=== PATIENT | male | born 1945 | race Caucasian/White ===

== ENCOUNTER 2016-11-24 20:56 | Emergency (ER) | payer OTHER ==
[~2016-11-24] VITALS: Ht 157.5 cm; Wt 63.0 kg
[~2016-11-24 20:56] MED LIST: ACET325T33 PO; CIPR500T4 PO; DOCU-144 PO; HYDR-3498 PO; WARF5TAB72 PO
[2016-11-24 21:00] VITALS: Ht 157.5 cm; Wt 63.0 kg
[2016-11-24 21:47] LABS: BASOPHILS % 0.5 % (0.0-2.0); EOSINOPHILS # 0.2 10^3/ul (0.0-0.5); EOSINOPHILS % 2.8 % (0.0-7.0); HEMATOCRIT 42.4 % (42.0-52.0); HEMOGLOBIN 13.7 g/dl (14.0-18.0); LYMPHOCYTES # 2.1 10^3/ul (0.8-2.9); LYMPHOCYTES % 28.2 % (15.0-51.0); MEAN CORPUSCULAR HEMOGLOBIN 26.3 pg (29.0-33.0); MEAN CORPUSCULAR HGB CONC 32.3 g/dl (32.0-37.0); MEAN CORPUSCULAR VOLUME 81.5 fl (82.0-101.0); MEAN PLATELET VOLUME 10.1 fl (7.4-10.4); MONOCYTE # 0.7 10^3/ul (0.3-0.9); MONOCYTES % 10.1 % (0.0-11.0); NEUTROPHIL # 4.3 10^3/ul (1.6-7.5); NEUTROPHILS % 58.4 % (39.0-77.0); PLATELET COUNT 208 10^3/UL (140-440); RED BLOOD COUNT 5.21 10^6/ul (4.70-6.10); RED CELL DISTRIBUTION WIDTH 16.6 % (11.5-14.5); UNCORRECTED WBC 7.3 10^3/ul (4.8-10.8); WHITE BLOOD COUNT 7.3 10^3/ul (4.8-10.8)
[2016-11-24 21:50] LABS: CONDITION 1; LH ANALYZER COMMENTS 1
[2016-11-24 21:56] LABS: ALBUMIN 3.8 g/dl (3.3-4.9); CHLORIDE 100 mmol/L (97-110); INR 1.8; PT RATIO 1.6; SODIUM 140 mmol/L (135-144)
[2016-11-24 21:57] LABS: PARTIAL THROMBOPLASTIN TIME 35.4 Sec (25.0-35.0); POTASSIUM 4.1 mmol/L (3.5-5.1)
[2016-11-24 21:59] LABS: ALANINE AMINOTRANSFERASE 16 IU/L (13-69); ALKALINE PHOSPHATASE 109 IU/L (42-121); ANION GAP 17 (8-16); ASPARTATE AMINO TRANSFERASE 18 IU/L (15-46); BILIRUBIN,INDIRECT 0.2 mg/dl (0-1.1); BILIRUBIN,TOTAL 0.2 mg/dl (0.2-1.3); BLOOD UREA NITROGEN 13 mg/dl (7-20); CALCIUM 8.6 mg/dl (8.4-10.2); CARBON DIOXIDE 27 mmol/L (21-31); CREATININE 0.53 mg/dl (0.61-1.24); GLUCOSE 78 mg/dl (70-220); TOTAL PROTEIN 7.6 g/dl (6.1-8.1)
[2016-11-24] MEDS ORDERED: WARF2.5T PO (22:06)
[2016-11-24 22:13] LABS: TROPONIN-I < 0.010 ng/ml (0.00-0.12)
--- NOTE | 2016-11-24 22:21 | RADRPT ---
PROCEDURE: XR Chest. CLINICAL INDICATION: SOB TECHNIQUE: Single frontal chest x-ray. COMPARISON: Chest x-ray of 07/04/[address] abdomen of 07/15/2015 FINDINGS: Colonic interposition and elevation of the right hemidiaphragm is again apparent. There is hypoinfla tion of the lungs. The patient is rotated to the right. Evaluation of the size of the cardiac silho uette is limited due to loss of visualization of the right heart border. ECG leads projected over t he chest. Linear atelectasis/fibrosis at left lung base laterally again seen. There is appearance of the additional minimal patchy density in the left costophrenic angle region which could be second vineet to atelectasis.There is minimal prominence of the lung interstitium likely minimal chronic maxwell es. IMPRESSION: Hypoinflation of the lungs. Patchy increased density left costophrenic angle region which could be secondary to atelectasis. PA and lateral chest x-ray is recommended when the patient can tolerate. RPTAT: HJES .Mika Schneider MD, Date Time Electronically viewed and signed by .Mika Schneider MD, on 11/24/2016 22:20 .S/
[2016-11-24] MEDS ORDERED: SOD CHLORIDE 0.9% 100 ML ONE (22:50)
[2016-11-24] MEDS ORDERED: IOHEXOL 100 ML ONE (22:50)
[2016-11-24] MEDS ORDERED: IOHEXOL 350MG/ML 50 ML BTL ONE (22:50)
--- NOTE | 2016-11-24 23:41 | RADRPT ---
PROCEDURE: CTA Chest and pulmonary angiogram. CLINICAL INDICATION: Chest pain and shortness of breath. TECHNIQUE: CT scan of the chest and CT pulmonary angiogram was performed on a multidetector high-r [employer]olution CT scanner. High-resolution thin slice coronal and sagittal imaging was obtained from the axial source images. 3-D volumetric rendered post processing was performed as well. The patient w as examined following the uncomplicated intravenous administration of 97 cc of Omnipaque 350. The im ages were reviewed on a PACS workstation. The total exam CTDI equals 31.35 mGy, and the total exam D LP equals 624.83 mGy-cm. One of the following 3 dose reduction techniques were used during this CT examination: automated exp osure control; adjustment of the mA and /or kV according to patient size; or use of iterative recons truciton technique COMPARISON: Chest x-ray dated 11/24/2016 FINDINGS: CT chest: The visualized base of the neck is normal. Low lung volumes are present. Bibasilar dependent atele ctasis is present. In the left lower lobe and peripheral lingula discoid atelectasis or early infil trate is present. Follow-up is recommended until resolution. No evidence for pleural effusions are present. Right hemidiaphragmatic elevation is again noted. The mediastinum is unremarkable without evidence for mass or lymphadenopathy. The vascular structur es of the mediastinum are normal in course and caliber. The heart size is normal without pericardia l thickening or effusion. The axillary, subpectoral, and supraclavicular regions are unremarkable. The surrounding chest wall is unremarkable. The visualized liver, spleen, pancreas, and bilateral adrenal glands are normal. The patient is sta tus post cholecystectomy changes. The imaged portions of the kidneys are normal. The imaged portio ns of the bowel are normal. The imaged osseous structures are remarkable for mild spondylosis of the spine. No CT pulmonary angiogram: No thrombus, clot, filling defect, or pulmonary web is identified. The pulmonary arteries are paula l in caliber and morphology. No filling defect is present to suggest pulmonary embolism. There is no evidence for pulmonary arterial hypertension. IMPRESSION: 1. No evidence for pulmonary embolism. 2. Hypoinflation with left greater than right basilar atelectasis. Recommend follow-up until resolu tion to exclude early infiltrate in the lingula and left lower lobe. 3. Status post cholecystectomy changes RPTAT: HDC .Nandini Sanchez MD, MD Date Time Electronically viewed and signed by .Nandini Sanchez MD, MD on 11/24/2016 23:40 .C/
[2016-11-25 01:42] VITALS: BP 132/76; PULSE 77; RESP 18
--- NOTE | 2016-11-25 03:58 | ERD ---
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 He states that shortness of breath is intermittent but getting worse. He has no associated chest pain, cough, fever, chills, new leg swelling. He states he has a history of DVT because he is bedbound due to his paraplegia, for which he is on Coumadin. He does not have any other medical problems. Nothing seems to make the shortness of breath better or worse. ROS All systems reviewed and are negative except as per history of present illness. Medications Home Meds Reported Medications Warfarin Sodium* (Coumadin*) 2.5 Mg Tablet, 2.5 MG PO DAILY, TAB TAKE 2TAB ON TUESDAY AND TUESDAY,AND 1.5TAB ALL OTHER QHS 11/24/16 Discontinued Reported Medications Warfarin Sodium* (Coumadin*) 5 Mg Tablet, 5 MG PO DAILY, TAB 07/05/15 Discontinued Scripts Acetaminophen* (Tylenol*) 325 Mg Tablet, 1 TAB PO Q6 Y for PAIN AND OR ELEVATED TEMP, #20 TAB Prov:ANGELA VALENTINO. [employer] 07/15/16 Ciprofloxacin Hcl* (Ciprofloxacin Hcl*) 500 Mg Tablet, 500 MG PO BID for 10 Days , TAB Prov:ANGELA VALENTINO. [employer] 07/15/16 Hydrocodone Bit/Acetaminophen (Anexsia 5-325 Mg Tablet) 1 Tab Tab, 2 TAB PO Q6H Y for MODERATE, #30 Prov:LIZETH LOCKHART 07/18/15 Docusate Sodium* (Colace*) 100 Mg Cap, 200 MG PO DAILY, #30 Prov:LIZETH LOCKHART 07/18/15 Allergies Allergies: Coded Allergies: No Known Allergy (Verified , 11/24/16) PMhx/Soc History of Surgery: Yes (removal of spinal tumor 2005) Anesthesia Reaction: No Hx Neurological Disorder: Yes (paraplegia bilat legs) Hx Respiratory Disorders: No Hx Cardiac Disorders: No Hx Psychiatric Problems: No Hx Miscellaneous Medical Probl: Yes (urine retention, dvt legs) Hx Alcohol Use: No Hx Substance Use: No Hx Tobacco Use: No Smoking Status: Never smoker FmHx Family History: No diabetes Physical Exam Vitals Vital Signs Date Time Temp Pulse Resp B/P Pulse Ox O2 Delivery O2 Flow Rate FiO2 11/25/16 01:42 77 18 132/76 96 Nasal Cannula 2.0 11/24/16 21:51 Nasal Cannula 2 11/24/16 21:00 98.3 72 22 133/117 95 Physical Exam Const: No apparent distress, nontoxic, laying comfortably in bed Head: Atraumatic Eyes: Normal Conjunctiva ENT: Normal External Ears, Nose and Mouth. Neck: Full range of motion.No meningismus. Resp: No tachypnea, no respiratory distress, no retractions, equal breath sounds bilaterally, bibasilar crackles present Cardio: Regular rate and rhythm, no murmurs Abd: Soft, non tender, non distended. Normal bowel sounds Skin: No petechiae or rashes Back: No midline or flank tenderness Ext: No cyanosis, 4 out of 5 strength in right upper extremity. 5 out of 5 strength in left upper extremity. No strength in bilateral lower extremities. Muscle atrophy in all 4 extremities. Bilateral lower extremities with trace edema, symmetric, nontender to palpation. Neur: Awake and alert and oriented 3 Psych: Normal Mood and Affect Result Diagram: 11/24/16212411/24/162124 Results 24 hrs Laboratory Tests Test 11/24/16 21:25 Activated Partial Thromboplast Time 35.4Sec Alanine Aminotransferase (ALT/SGPT) 16IU/L Albumin 3.8g/dl Albumin/Globulin Ratio 1.00 Alkaline Phosphatase 109IU/L Anion Gap 17 Aspartate Amino Transf (AST/SGOT) 18IU/L Basophils # 0.010^3/ul Basophils % 0.5% Blood Morphology Comment Blood Urea Nitrogen 13mg/dl Calcium Level 8.6mg/dl Carbon Dioxide Level 27mmol/L Chloride Level 100mmol/L Creatinine 0.53mg/dl Direct Bilirubin 0.00mg/dl Eosinophils # 0.210^3/ul Eosinophils % 2.8% Globulin 3.80g/dl Glucose Level 78mg/dl Hematocrit 42.4% Hemoglobin 13.7g/dl INR International Normalized Ratio 1.80 Indirect Bilirubin 0.2mg/dl Lymphocytes # 2.110^3/ul Lymphocytes % 28.2% Mean Corpuscular Hemoglobin 26.3pg Mean Corpuscular Hemoglobin Concent 32.3g/dl Mean Corpuscular Volume 81.5fl Mean Platelet Volume 10.1fl Monocytes # 0.710^3/ul Monocytes % 10.1% Neutrophils # 4.310^3/ul Neutrophils % 58.4% Nucleated Red Blood Cells # 0.010^3/ul Nucleated Red Blood Cells % 0.0/100WBC Platelet Count 76541^3/UL Potassium Level 4.1mmol/L Prothrombin Time 21.0Sec Prothrombin Time Ratio 1.6 Red Blood Count 5.2110^6/ul Red Cell Distribution Width 16.6% Sodium Level 140mmol/L Total Bilirubin 0.2mg/dl Total Protein 7.6g/dl Troponin I < 0.010ng/ml White Blood Count 7.310^3/ul Current Medications Medications (Trade) Dose Ordered Sig/Anita Route PRN Reason Start Time Stop Time Status Last Admin Dose Admin IV Flush 10 ml 10 ml STK-MED ONCE .ROUTE 11/24/16 22:50 11/24/16 22:51 DC 11/24/16 23:21 Sodium Chloride 100 ml @ ud STK-MED ONCE .ROUTE 11/24/16 22:50 11/24/16 22:51 DC 11/24/16 23:21 Iohexol (Omnipaque) 100 ml @ ud STK-MED ONCE .ROUTE 11/24/16 22:50 11/24/16 22:51 DC 11/24/16 23:21 Iohexol (Omnipaque 350mg/ ml) 50 ml STK-MED ONCE .ROUTE 11/24/16 22:50 11/24/16 22:51 DC Procedures/MDM EKG: Rate/Rhythm: Normal Sinus Rhythm QRS, ST, T-waves: No changes consistent w/ acute ischemia Impression: No evidence of ischemia or arrhythmia Chest x-ray shows right hemidiaphragm elevation which is chronic for the patient. Possible left lower lobe infiltrates. CTA chest done to evaluate for pulmonary embolism. There is no evidence of dissection or pulmonary embolism. There is bilateral atelectasis, left greater than right. Patient is presenting with shortness of breath at rest. Vitals are stable and he is afebrile. I have a low suspicion for acute coronary syndrome. Given his history of DVT, CTA of the chest was done to evaluate for pulmonary embolism and was negative for pulmonary embolism. There is no evidence of obvious pneumonia. His labs are all within normal limits. His EKG does not show ischemia or other concerning abnormalities. I suspect the patient's dyspnea secondary to atelectasis. Incentive spirometer was provided and the patient was counseled on how to use it. I advised to follow-up with his primary care doctor in the next 2 days. Return precautions were given. Patient was stable upon discharge. Departure Diagnosis: Primary Impression: Dyspnea, unspecified Additional Impression: Atelectasis of both lungs Condition: Stable Patient Instructions: Atelectasis, Using an Incentive Spirometer, Dyspnea Additional Instructions: Regresa a la emergencia si no estas meojorando o estas empejorando. Mario josse jesse para ortega medico primario en 1-2 erickson. JOSÉ LUIS CHONG MD Nov 25, 2016 03:58
== END 2016-11-25 01:42 | disposition home or self-care (01) ==
LOC: E/R 20:56
DX: R06.00 Dyspnea, unspecified (principal); J98.11 Atelectasis; R40.2142 Coma scale, eyes open, spontaneous, at arrival to emergency department; R40.2252 Coma scale, best verbal response, oriented, at arrival to emergency department; R40.2362 Coma scale, best motor response, obeys commands, at arrival to emergency department; Z79.01 Long term (current) use of anticoagulants
CPT/HCPCS: 36415; 71010; 71275; 80053; 84484; 85025; 85610; 85730; 93005; Q9967; Z7502; Z7610

== ENCOUNTER 2017-03-28 10:42 | Emergency (ER) | payer OTHER ==
[~2017-03-28] VITALS: Wt 85.0 kg
[~2017-03-28 10:42] MED LIST changes: -ACET325T33 PO; -CIPR500T4 PO; -DOCU-144 PO; -HYDR-3498 PO; +WARF2.5T PO; -WARF5TAB72 PO
[2017-03-28 12:38] LABS: ADD SCAN DIFF NO
[2017-03-28 12:44] LABS: BASOPHILS % 0.4 % (0.0-2.0); EOSINOPHILS # 0.1 10^3/ul (0.0-0.5); EOSINOPHILS % 1.2 % (0.0-7.0); HEMATOCRIT 43.5 % (42.0-52.0); HEMOGLOBIN 13.8 g/dl (14.0-18.0); LYMPHOCYTES # 1.9 10^3/ul (0.8-2.9); LYMPHOCYTES % 23.3 % (15.0-51.0); MEAN CORPUSCULAR HEMOGLOBIN 26.3 pg (29.0-33.0); MEAN CORPUSCULAR HGB CONC 31.7 g/dl (32.0-37.0); MEAN CORPUSCULAR VOLUME 82.9 fl (82.0-101.0); MEAN PLATELET VOLUME 10.9 fl (7.4-10.4); MONOCYTE # 0.7 10^3/ul (0.3-0.9); MONOCYTES % 8.3 % (0.0-11.0); NEUTROPHIL # 5.5 10^3/ul (1.6-7.5); NEUTROPHILS % 66.3 % (39.0-77.0); PLATELET COUNT 291 10^3/UL (140-415); RED BLOOD COUNT 5.25 10^6/ul (4.70-6.10); RED CELL DISTRIBUTION WIDTH 15.2 % (11.5-14.5); WHITE BLOOD COUNT 8.3 10^3/ul (4.8-10.8)
[2017-03-28 13:02] LABS: INR 2.36; PROTIME 26.1 Sec (12.2-14.2)
[2017-03-28 13:03] LABS: PARTIAL THROMBOPLASTIN TIME 42.8 Sec (25.0-35.0)
[2017-03-28 13:06] LABS: ALBUMIN 3.7 g/dl (3.3-4.9); ALBUMIN/GLOBULIN RATIO 0.9; BILIRUBIN,INDIRECT 0.4 mg/dl (0-1.1); BILIRUBIN,TOTAL 0.4 mg/dl (0.2-1.3); CALCIUM 8.8 mg/dl (8.4-10.2); CREATININE 0.54 mg/dl (0.61-1.24); POTASSIUM 4.4 mmol/L (3.5-5.1); TOTAL PROTEIN 7.8 g/dl (6.1-8.1)
[2017-03-28 13:09] LABS: ADD UMIC YES; URINE BILIRUBIN (Dip) NEGATIVE (NEGATIVE); URINE BLOOD (Dip) 3+ (NEGATIVE); URINE COLOR YELLOW (YELLOW); URINE GLUCOSE (Dip) NEGATIVE (NEGATIVE); URINE KETONES (Dip) NEGATIVE (NEGATIVE); URINE LEUKOCYTE ESTERASE (Dip) 1+ (NEGATIVE); URINE NITRITE (Dip) NEGATIVE (NEGATIVE); URINE TOTAL PROTEIN (Dip) NEGATIVE (NEGATIVE); URINE UROBILINOGEN (Dip) 1.0 E.U./dL (0.1-1.0)
[2017-03-28 13:23] LABS: BACTERIA,URINE MANY; SQUAMOUS EPITHELIAL CELL,UR FEW
--- NOTE | 2017-03-28 13:33 | RADRPT ---
PROCEDURE: CT Abdomen and Pelvis without contrast. CLINICAL INDICATION: Right flank pain TECHNIQUE: CT scan of the abdomen and pelvis without contrast was performed on a multidetector hig h-resolution CT scanner. The patient was scanned without intravenous contrast. Coronal and sagittal reformatted images were obtained from the axial source images. Images were reviewed on a high-resol [employer] PACS workstation. The total exam CTDI equals 10.92 mGy and the total exam DLP equals 724.27 mG y-cm. One or more of the following dose reduction techniques were used: Automated exposure control. Adjustment of the mA and/or kV according to patient size. Use of iterative reconstruction technique. COMPARISON: CT abdomen and pelvis 07/15/2015. FINDINGS: CT abdomen: The lung bases are remarkable for mild bibasilar atelectasis. The heart size is normal, without per icardial thickening or effusion. The liver is normal in size and density without focal mass or intr ahepatic biliary dilatation. The spleen is normal in size and homogeneous in density. The stomach is partially collapsed, but is grossly unremarkable. The pancreas as visualized is normal. The gal lbladder is surgically absent. There is mild prominence of the common bile duct, not significantly The adrenal glands are symmetric and normal. The kidneys are symmetrically unremarkable as well. No renal calculus or obstructive uropathy or mass lesion is seen. The aorta is of normal caliber. Aortic vascular calcifications are present. There is no retroperit mckeon lymphadenopathy. The ryan hepatis region is clear. There is moderate stool throughout the co carmelita. CT pelvis: The small bowel loops situated within the pelvis are unremarkable. There are bilateral fat containi ng inguinal hernias left being more prominent. The pelvic organs are normal. The pelvic sidewalls and inguinal regions are clear. The sigmoid colon and rectum are remarkable for mild stool retentio n in the rectum.. No mass, lymphadenopathy, or free fluid is seen. No acute inflammation is seen. The surrounding osseous structures are remarkable for degenerative spondylosis of the spine. No os teolytic or osteoblastic lesion is detected. There is stable mild compression fracture of L4. There has been interval worsening of chronic compression fracture of L1 with approximately 80% height los s centrally with no significant retropulsion. There is age indeterminate mild to moderate compressi on fracture of L3 with approximately 30% height loss centrally. There is mild paraspinal soft tissu e thickening suggesting acute/subacute nature of this compression fracture. IMPRESSION: 1. No urolithiasis. No hydronephrosis. 2. Mild compression fracture of L3 with paraspinal soft tissue thickening suggesting acute/subacute nature of the fracture. Minimal retropulsion with no significant central canal compromise. 3. Progressive height loss of chronic L1 compression fracture approximately 80% height loss with no significant retropulsion. 4. Unchanged chronic mild compression fracture of L4. 5. Status post cholecystectomy. Stable mild prominence of the CBD. 6. Moderate stool throughout the colon with stool retention in the rectum. No colonic obstruction. 7. Fat containing bilateral inguinal hernias left being more prominent. 8. Mild diffuse atherosclerosis. RPTAT: BB .Smita Gurrola MD, Date Time Electronically viewed and signed by .Smita Gurrola MD, on 03/28/2017 13:32 .O/
--- NOTE | 2017-03-28 13:42 | ERD ---
ER Documentation Chief Complaint Date/Time DATE: 03/28/17 TIME: 13:37 Chief Complaint ABD PAIN X 3 DAY W/ FEVER HPI This is a 71-year-old paraplegic male who presents to the emergency room for evaluation of abdominal pain for the past 2 days. The patient states that he has an achy and sharp pain on the right flank which radiates to the abdomen. The patient denies any fevers associated with this but did state he had chills previously. This patient denies any recent trauma, and denies any nausea, vomiting or diarrhea associated with this. He came to the emergency room for evaluation and is denying any aggravating or relieving factors for his complaints at this time ROS All systems reviewed and are negative except as per history of present illness. Medications Home Meds Reported Medications Warfarin Sodium* (Coumadin*) 2.5 Mg Tablet, 2.5 MG PO DAILY, TAB 11/24/16 Allergies Allergies: Coded Allergies: No Known Allergy (Verified , 11/24/16) PMhx/Soc History of Surgery: Yes (removal of spinal tumor 2005) Anesthesia Reaction: No Hx Neurological Disorder: Yes (paraplegia bilat legs) Hx Respiratory Disorders: No Hx Cardiac Disorders: No Hx Psychiatric Problems: No Hx Miscellaneous Medical Probl: Yes (urine retention, dvt legs) Hx Alcohol Use: No Hx Substance Use: No Hx Tobacco Use: No Smoking Status: Never smoker Physical Exam Vitals Vital Signs Date Time Temp Pulse Resp B/P Pulse Ox O2 Delivery O2 Flow Rate FiO2 03/28/17 10:44 98.2 78 18 114/61 99 Physical Exam INITIAL VITAL SIGNS: Reviewed by me GENERAL: The patient is well developed, paraplegic male HEENT: Pupils equal, round, and reactive to light. EOMI. There is no scleral icterus. NECK: C-spine is soft and supple, there is no meningismus. There is no cervical lymphadenopathy. LUNGS: Clear to auscultation bilaterally. There are no rales, wheezes or rhonchi. HEART: Regular rate and rhythm, no murmurs, clicks, rubs or gallops. ABDOMEN: Right-sided CVAT, otherwise soft, non-tender, non-distended. There are bowel sounds in all four quadrants. No rebound or guarding. EXTREMITIES: There is no peripheral cyanosis or edema. No focal swelling or erythema. NEUROLOGICAL: The patient moves upper extremities with 5/5 strength. Cranial nerves II - XII are intact. SKIN: There is no apparent rash or petechiae. HEME/LYMPHATIC: There is no evidence of excessive bruising or lymphedema. PSYCHIATRIC: The patient does not appear anxious or depressed. Result Diagram: 03/28/17 1218 03/28/17 1218 Results 24 hrs Laboratory Tests Test 03/28/17 12:11 03/28/17 12:18 Urine Color YELLOW Urine Clarity SLIGHTLY CLOUDY Urine pH 6.0 Urine Specific [place] 1.020 Urine Ketones NEGATIVE Urine Nitrite NEGATIVE Urine Bilirubin NEGATIVE Urine Urobilinogen 1.0 E.U./dL Urine Leukocyte Esterase 1+ Urine Microscopic RBC 10-25/HPF Urine Microscopic WBC 10-25/HPF Urine Squamous Epithelial Cells FEW Urine Bacteria MANY Urine Hemoglobin 3+ Urine Glucose NEGATIVE% Urine Total Protein NEGATIVE White Blood Count 8.310^3/ul Red Blood Count 5.2510^6/ul Hemoglobin 13.8g/dl Hematocrit 43.5% Mean Corpuscular Volume 82.9fl Mean Corpuscular Hemoglobin 26.3pg Mean Corpuscular Hemoglobin Concent 31.7g/dl Red Cell Distribution Width 15.2% Platelet Count 36497^3/UL Mean Platelet Volume 10.9fl Neutrophils % 66.3% Lymphocytes % 23.3% Monocytes % 8.3% Eosinophils % 1.2% Basophils % 0.4% Nucleated Red Blood Cells % 0.0/100WBC Neutrophils # 5.510^3/ul Lymphocytes # 1.910^3/ul Monocytes # 0.710^3/ul Eosinophils # 0.110^3/ul Basophils # 0.010^3/ul Nucleated Red Blood Cells # 0.010^3/ul Prothrombin Time 26.1Sec Prothrombin Time Ratio 2.0 INR International Normalized Ratio 2.36 Activated Partial Thromboplast Time 42.8Sec Sodium Level 139mmol/L Potassium Level 4.4mmol/L Chloride Level 103mmol/L Carbon Dioxide Level 30mmol/L Anion Gap 10 Blood Urea Nitrogen 8mg/dl Creatinine 0.54mg/dl Glucose Level 95mg/dl Calcium Level 8.8mg/dl Total Bilirubin 0.4mg/dl Direct Bilirubin 0.00mg/dl Indirect Bilirubin 0.4mg/dl Aspartate Amino Transf (AST/SGOT) 19IU/L Alanine Aminotransferase (ALT/SGPT) 26IU/L Alkaline Phosphatase 111IU/L Total Protein 7.8g/dl Albumin 3.7g/dl Globulin 4.10g/dl Albumin/Globulin Ratio 0.90 Lipase 29U/L Procedures/MDM CT abdomen pelvis without: 1. No urolithiasis. No hydronephrosis. 2. Mild compression fracture of L3 with paraspinal soft tissue thickening suggesting acute/subacute nature of the fracture. Minimal retropulsion with no significant central canal compromise. 3. Progressive height loss of chronic L1 compression fracture approximately 80 % height loss with no significant retropulsion. 4. Unchanged chronic mild compression fracture of L4. 5. Status post cholecystectomy. Stable mild prominence of the CBD. 6. Moderate stool throughout the colon with stool retention in the rectum. No colonic obstruction. 7. Fat containing bilateral inguinal hernias left being more prominent. 8. Mild diffuse atherosclerosis. This 71-year-old male presents to the ER for evaluation of abdominal pain. When I evaluated this patient did have mild flank pain on the right. Lab work was obtained including a urinalysis. Urinalysis shows some white blood cells in the urine and lab work does not demonstrate any leukocytosis. This patient was afebrile in the emergency room. No nausea or vomiting. CT of the abdomen pelvis shows mild compression fracture of L3 with paraspinal soft tissue thickening with minimal retropulsion. I asked this patient about any recent trauma and he states that 4 months ago he had a fall at home. I think that this fall 4 months ago would be the cause of his L1 compression fracture and possibly L3 as the patient has had no recent trauma. This patient will be treated for urinary tract infection. He will be given medicine for pain and will be discharged home with referral to [facility] orthopedic [place] for evaluation of possible kyphoplasty. The patient is okay to plan of care and advised him to return to the ER if he were to develop any worsening pain, fever, chills or vomiting and he verbalized understanding. Departure Diagnosis: Primary Impression: Acute cystitis Additional Impression: Vertebral compression fracture Condition: Stable RONNIECAMMY MCDERMOTT March 28, 2017 13:42
[2017-03-28] MEDS ORDERED: CIPR500T4 PO (13:43)
[2017-03-28] MEDS ORDERED: HYDR-906 PO (13:43)
[2017-03-28] MEDS ORDERED: CIPROFLOXACIN 500 MG TAB ONE (13:43)
[2017-03-28] MEDS ORDERED: HYDROCODONE/APAP (5/325) TAB PO ONE (14:00)
[2017-03-28] MEDS ORDERED: CIPROFLOXACIN 500 MG TAB PO ONE (14:00)
[2017-03-28 14:06] VITALS: PULSE 62; RESP 18
== END 2017-03-28 14:07 | disposition home or self-care (01) ==
LOC: E/R 10:42
DX: N30.00 Acute cystitis without hematuria (principal); S32.019A Unspecified fracture of first lumbar vertebra, initial encounter for closed fracture; S32.039A Unspecified fracture of third lumbar vertebra, initial encounter for closed fracture; S32.049A Unspecified fracture of fourth lumbar vertebra, initial encounter for closed fracture; X58.XXXA Exposure to other specified factors, initial encounter; Y92.9 Unspecified place or not applicable; Z79.01 Long term (current) use of anticoagulants
CPT/HCPCS: 36415; 74176; 80053; 81001; 83690; 85025; 85610; 85730; Z7502; Z7610; 81003

== ENCOUNTER 2017-04-05 09:01 | Inpatient (IN) | payer OTHER ==
[~2017-04-05] VITALS: Ht 165.1 cm; Wt 72.0 kg
[~2017-04-05 09:01] MED LIST changes: +CIPR500T4 PO; +HYDR-906 PO
[2017-04-05] MEDS ORDERED: morphine 4 MG/ML VIAL IV STA (09:03)
[2017-04-05] MEDS ORDERED: SOD CHLORIDE 0.9% 500 ML IV STA (09:03)
[2017-04-05] MEDS ORDERED: ONDANSETRON 4 MG INJ IV STA (09:03)
--- NOTE | 2017-04-05 09:36 | RADRPT ---
PROCEDURE: CT abdomen and pelvis without contrast. CLINICAL INDICATION: Abdominal Pain TECHNIQUE: CT scan of the abdomen and pelvis without contrast was performed and is reconstructed a t 2.5 mm contiguous axial intervals from the dome of the diaphragm to the inferior pubic rami.. The patient was scanned without intravenous contrast. Sagittal and coronal reformatted images were obt ained from the axial source images. The calculated radiation dose measures 684 mGy centimeters. The CTDI measures 10 mGy. COMPARISON: CT abdomen pelvis March 28, 2017. FINDINGS: The lung bases are clear of any infiltrate or nodule. No effusion is seen. There is elevation of th e right hemidiaphragm. The liver is of normal size, contour and attenuation with no mass or ductal dilatation. Gallbladder has been removed. No splenic, adrenal or pancreatic abnormalities present. Kidneys are of normal size and contour. No hydronephrosis, calculus or masses seen. Ureters are o f normal course and caliber with no stone. No bladder mass or stone is present. There is no aneurysm. No adenopathy is present. No bowel mass or obstruction is present. There is a large volume of retained fecal material throug hout the colon and rectum. The colon is interposed under the right hemidiaphragm. The appendix is n ormal. No phlegmon, ascites or pneumoperitoneum is visualized. There is mild concentric thickening of the rectum with stranding of the pre coccygeal fat. No discrete collection or extraluminal gas is present. There are bilateral inguinal hernias containing fat. Noted is a moderate to severe chronic compression fracture of the L1. There is a moderate acute to subacute inferior endplate compression fracture of the L3 which does not extend into the pedicles or posterior elements and does not demonstrate significant retropulsion. Chronic moderate endplate co mpression fractures seen and L4. IMPRESSION: No evidence of urolithiasis, obstructive uropathy, diverticulitis or appendicitis. Constipation. Concentric thickening rectum with stranding of surrounding fat. Rule out proctitis. Chronic compression fractures L1 and L4. Acute to subacute compression fracture L3 without retropul toby. Post cholecystectomy. Inguinal hernias containing fat. .Geovanny Carvajal MD, MD Date Time Electronically viewed and signed by .Geovanny Carvajal MD, on 04/05/2017 09:36 .A/
[2017-04-05 09:48] LABS: ADD SCAN DIFF NO
[2017-04-05 09:50] LABS: BASOPHILS % 0.4 % (0.0-2.0); EOSINOPHILS # 0.1 10^3/ul (0.0-0.5); EOSINOPHILS % 0.6 % (0.0-7.0); HEMATOCRIT 39.8 % (42.0-52.0); HEMOGLOBIN 12.5 g/dl (14.0-18.0); LYMPHOCYTES # 1.2 10^3/ul (0.8-2.9); MEAN CORPUSCULAR HEMOGLOBIN 25.6 pg (29.0-33.0); MEAN CORPUSCULAR HGB CONC 31.4 g/dl (32.0-37.0); MEAN CORPUSCULAR VOLUME 81.6 fl (82.0-101.0); MEAN PLATELET VOLUME 10.2 fl (7.4-10.4); MONOCYTE # 0.8 10^3/ul (0.3-0.9); NEUTROPHIL # 8.7 10^3/ul (1.6-7.5); NEUTROPHILS % 80.5 % (39.0-77.0); PLATELET COUNT 343 10^3/UL (140-415); RED BLOOD COUNT 4.88 10^6/ul (4.70-6.10); RED CELL DISTRIBUTION WIDTH 15.2 % (11.5-14.5); WHITE BLOOD COUNT 10.8 10^3/ul (4.8-10.8)
[2017-04-05] MEDS ORDERED: WARF5TAB72 PO (10:06)
[2017-04-05] MEDS ORDERED: WARF1TAB47 PO (10:07)
[2017-04-05 10:13] LABS: ALBUMIN 3.4 g/dl (3.3-4.9); ALBUMIN/GLOBULIN RATIO 0.87; BILIRUBIN,INDIRECT 0.5 mg/dl (0-1.1); BILIRUBIN,TOTAL 0.5 mg/dl (0.2-1.3); CALCIUM 8.5 mg/dl (8.4-10.2); CREATININE 0.55 mg/dl (0.61-1.24); POTASSIUM 4.2 mmol/L (3.5-5.1); TOTAL PROTEIN 7.3 g/dl (6.1-8.1)
[2017-04-05 11:08] LABS: ADD UMIC YES; UR BILIRUBIN (Dip) 1+ (NEGATIVE); UR BLOOD (Dip) 1+ (NEGATIVE); UR CLARITY TURBID (CLEAR); UR COLOR YELLOW (YELLOW); UR GLUCOSE (Dip) NEGATIVE (NEGATIVE); UR KETONES (Dip) TRACE (NEGATIVE); UR LEUKOCYTE ESTERASE (Dip) 1+ (NEGATIVE); UR NITRITE (Dip) NEGATIVE (NEGATIVE); UR TOTAL PROTEIN (Dip) NEGATIVE (NEGATIVE); UR UROBILINOGEN (Dip) 1.0 E.U./dL (0.1-1.0)
[2017-04-05 11:38] LABS: ICTOTEST NEGATIVE (NEGATIVE); URINE RBCS 0-2 /HPF (0)
[2017-04-05 11:39] LABS: UR BACTERIA MANY
[2017-04-05] MEDS ORDERED: morphine 10 MG INJ IM PRN (15:30)
[2017-04-05] MEDS ORDERED: CEFTRIAXONE 1 GM INJ IM ONE (15:30)
[2017-04-05] MEDS ORDERED: ACETAMINOPHEN 500 MG TAB PO PRN (15:30)
[2017-04-05 15:47] LABS: INR 3.93; PROTIME 39.1 Sec (12.2-14.2); PT RATIO 3.1
[2017-04-05] MEDS ORDERED: CEFTRIAXONE 1 GM/50 ML (PMX) 50 ML IVPB SCH ×2 (16:00→18:00)
--- NOTE | 2017-04-05 16:18 | HP ---
DATE OF ADMISSION: 04/05/2017 CHIEF COMPLAINT: Right-sided abdominal pain, back pain and diarrhea. HISTORY OF PRESENT ILLNESS: The patient is a 71-year-old gentleman well known to me from previous a dmissions. 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 The patient since then has been wheelchair bound and also is incontinent of bowel and urine. Th e patient has previously been admitted because of UTI and ureteral stone. Patient came to ER with r ight-sided abdominal pain, lower back pain and also reported diarrhea. Patient did not have any hem aturia, no reported fever or chills. No reported chest pain, shortness of breath. The patient has history of deep vein thrombosis of left lower extremity several years ago and has been on Coumadin s guerrero then. The patient did not have any abdominal distention, no reported vomiting, no reported cou gh, headache, sore throat. No reported leg edema. Patient is not orthopneic. The patient was seen in the ER and was noted to have normal white count, however, did have a left shift with neutrophils of 80.5%. Chemistry was unremarkable with normal liver enzymes. Patient also underwent CT of the abdomen and pelvis which revealed no evidence of ureterolithiasis or obstructive uropathy, diverticu litis or appendicitis, concentric thickening rectum with stranding of surrounding fat rule out proct itis. Patient also had constipation. The patient also has chronic compression fracture L1 to L4 an d acute to subacute compression fracture in L3 with retropulsion. Patient recently was in the ER on 03/26/[address] scan and at that time was also noted to have L3 fracture. The patient denied any recent fall. The rest of the history is unremarkable. PAST MEDICAL HISTORY: As stated above. PAST SURGICAL HISTORY: Cervical tumor resection, details not available. ALLERGIES: NONE. SOCIAL HISTORY: No smoking, no alcohol. Patient lives with the family. MEDICATIONS: The patient was on Coumadin prior to admission. The patient states that he was on 2.5 mg. FAMILY HISTORY: Noncontributory. PHYSICAL EXAMINATION: GENERAL: The patient is conscious, awake, alert. VITAL SIGNS: Temperature 98.4, pulse 102, respirations 18, blood pressure 114/____, O2 saturation 9 9% on room air. HEENT: Atraumatic, normocephalic. Conjunctivae and lids normal. Oropharynx clear. NECK: Supple. No mass, no thyromegaly. CHEST: Fairly clear. CARDIOVASCULAR: Nose and ears normal. No murmur, gallop, or rub. ABDOMEN: Soft, nondistended. Mild right-sided tenderness present. No guarding or rigidity. Bowel sounds present. EXTREMITIES: No leg edema. Pedal pulses palpable. SKIN: Without acute rash. NEUROLOGIC: The patient is awake, alert, fairly oriented with dense paraplegia. LABORATORY DATA: As above. Urine antigen positive for UTI. IMPRESSION: 1. Acute proctitis. 2. Constipation. 3. Rule out possible urinary tract infection. 4. Paraplegia. 5. Cervical tumor resection. 6. History of deep venous thrombosis several years ago. PLAN: Patient admitted on medical floor. Patient will be started on IV Rocephin, IV fluids. Will obtain PT/INR. We will also add IV Flagyl empirically. Will order stool C. diff and routine cultu re and urine culture. Further recommendation will depend on patient's hospital course. If the byron ent does not improve in the next 24 to 48 hours, then we will obtain a GI consultation. Patient's l ipase in the ER came back as normal. Dictated By: CHARISMA RENTERIA/JASMIN Conf#: [id number] DID#: [id number]
[2017-04-05 16:21] VITALS: Ht 165.1 cm; Wt 72.0 kg
[2017-04-05 16:30] VITALS: BP 112/63; PULSE 65
[2017-04-05] MEDS: SOD CHLORIDE 0.9% 1,000 ML IV SCH (17:31)
[2017-04-05] MEDS: HYDROCODONE/APAP (5/325) TAB PO PRN ×2 (18:20→22:34)
[2017-04-05] MEDS: morphine 4 MG/ML VIAL IV PRN (18:42)
[2017-04-06] MEDS: morphine 4 MG/ML VIAL IV PRN ×3 (00:20→22:27)
[2017-04-06] MEDS: HYDROCODONE/APAP (5/325) TAB PO PRN (02:32)
[2017-04-06] MEDS: SOD CHLORIDE 0.9% 1,000 ML IV SCH ×3 (04:50→22:27)
[2017-04-06 06:50] LABS: ADD SCAN DIFF NO
[2017-04-06 06:55] LABS: BASOPHILS % 0.4 % (0.0-2.0); EOSINOPHILS # 0.3 10^3/ul (0.0-0.5); EOSINOPHILS % 3.7 % (0.0-7.0); HEMATOCRIT 34.3 % (42.0-52.0); HEMOGLOBIN 10.7 g/dl (14.0-18.0); LYMPHOCYTES # 1.2 10^3/ul (0.8-2.9); LYMPHOCYTES % 17.1 % (15.0-51.0); MEAN CORPUSCULAR HGB CONC 31.2 g/dl (32.0-37.0); MEAN CORPUSCULAR VOLUME 83.5 fl (82.0-101.0); MONOCYTE # 0.6 10^3/ul (0.3-0.9); MONOCYTES % 8.8 % (0.0-11.0); NEUTROPHIL # 4.7 10^3/ul (1.6-7.5); NEUTROPHILS % 69.9 % (39.0-77.0); PLATELET COUNT 289 10^3/UL (140-415); RED BLOOD COUNT 4.11 10^6/ul (4.70-6.10); RED CELL DISTRIBUTION WIDTH 15.5 % (11.5-14.5); WHITE BLOOD COUNT 6.7 10^3/ul (4.8-10.8)
[2017-04-06 07:12] LABS: POTASSIUM 4.7 mmol/L (3.5-5.1)
[2017-04-06 07:14] LABS: CREATININE 0.54 mg/dl (0.61-1.24)
[2017-04-06 07:15] LABS: CALCIUM 8.2 mg/dl (8.4-10.2)
[2017-04-06 07:20] VITALS: BP 124/64; RESP 20
[2017-04-06 07:38] LABS: INR 4.18; PROTIME 41.1 Sec (12.2-14.2); PT RATIO 3.2
--- NOTE | 2017-04-06 14:36 | PN ---
Date/Time of Note Date/Time of Note DATE: 04/06/17 TIME: 14:32 Assessment/Plan VTE Prophylaxis VTE Prophylaxis Intervention: SCD's Lines/Catheters [facility] Peripheral IV Urinary Cath still in place: No Assessment/Plan Chief Complaint/Hosp Course Patient is sitting in bed eating lunch, denies nausea vomiting, complaints of the left lower quadrant tenderness. Problems: Assessment/Plan - Acute proctitis. Continue broad-spectrum antibiotics. - Possible UTI per UA follow-up on culture. - Constipation. Continue patient on bowel regimen. - Paraplegia. - Cervical tumor resection. - History of deep venous thrombosis several years ago. Further recommendations based on clinical course. Plan of care discussed with Dr. Treviño. Exam/Review of Systems Vital Signs Vitals Vital Signs Date Time Temp Pulse Resp B/P Pulse Ox O2 Delivery O2 Flow Rate FiO2 04/06/17 07:20 97.7 72 20 124/64 91 04/05/17 16:30 Room Air 2.0 Intake and Output 04/05/17 04/05/17 04/06/17 15:00 23:00 07:00 Intake Total 370 ml 1380 ml Output Total 450 ml 500 ml Balance -80 ml 880 ml Exam Constitutional: alert, oriented Head: normocephalic Neck: non-tender, supple Respiratory: clear to auscultation Cardiovascular: nl pulses Gastrointestinal: other (Left lower quadrant tenderness), soft Extremities: normal pulses Results Result Diagram: 04/06/17 0530 04/06/17 0530 Results 24 hrs Laboratory Tests Test 04/05/17 15:23 04/06/17 05:30 Prothrombin Time 39.1 #H 41.1 H Prothrombin Time Ratio 3.1 3.2 INR International Normalized Ratio 3.93 4.18 White Blood Count 6.7 # Red Blood Count 4.11 L Hemoglobin 10.7 L Hematocrit 34.3 L Mean Corpuscular Volume 83.5 Mean Corpuscular Hemoglobin 26.0 L Mean Corpuscular Hemoglobin Concent 31.2 L Red Cell Distribution Width 15.5 H Platelet Count 289 Mean Platelet Volume 11.0 H Neutrophils % 69.9 Lymphocytes % 17.1 Monocytes % 8.8 Eosinophils % 3.7 Basophils % 0.4 Nucleated Red Blood Cells % 0.0 Neutrophils # 4.7 Lymphocytes # 1.2 Monocytes # 0.6 Eosinophils # 0.3 Basophils # 0.0 Nucleated Red Blood Cells # 0.0 Sodium Level 140 Potassium Level 4.7 Chloride Level 108 Carbon Dioxide Level 30 Anion Gap 7 L Blood Urea Nitrogen 10 Creatinine 0.54 L Glucose Level 79 Calcium Level 8.2 L Medications Medications Current Medications Sodium Chloride (NS) 1,000 ml @ 75 mls/hr [id number] IV Last administered on 04/06 08:00; Admin Dose 75 MLS/HR; Start 04/05/17 at 15:30 Acetaminophen (Tylenol Tab) 500 mg Q4H PRN PO PAIN LEVEL 1-3 OR FEVER; Start at 15:30 Acetaminophen/ Hydrocodone Bitart ([place] (5/325)) 1 tab Q4H PRN PO PAIN LEVEL 4 -6 Last administered on 04/06/17 02:32; Admin Dose 1 TAB; Start 04/05/17 at 15: 30 Morphine Sulfate 4 mg 4 mg Q4H PRN IV PAIN LEVEL 7-10 Last administered on 04/06 08:06; Admin Dose 4 MG; Start 04/05/17 at 19:30 Ceftriaxone Sodium (Rocephin) 50 ml @ 100 mls/hr Q24H IVPB ; Start 04/06/17 at 18:00 LIZETH LOCKHART April 06, 2017 14:36
[2017-04-06] MEDS: CEFTRIAXONE 1 GM/50 ML (PMX) 50 ML IVPB SCH (17:23)
[2017-04-06 19:35] VITALS: BP 159/68; RESP 20
[2017-04-07 00:49] VITALS: BP 137/70; PULSE 61
[2017-04-07] MEDS: HYDROCODONE/APAP (5/325) TAB PO PRN (05:41)
[2017-04-07 06:15] LABS: ADD SCAN DIFF NO
[2017-04-07 06:30] LABS: BASOPHILS % 0.5 % (0.0-2.0); EOSINOPHILS # 0.2 10^3/ul (0.0-0.5); EOSINOPHILS % 3.8 % (0.0-7.0); HEMATOCRIT 37.8 % (42.0-52.0); LYMPHOCYTES # 1.6 10^3/ul (0.8-2.9); LYMPHOCYTES % 26.9 % (15.0-51.0); MEAN CORPUSCULAR HEMOGLOBIN 26.2 pg (29.0-33.0); MEAN CORPUSCULAR HGB CONC 31.7 g/dl (32.0-37.0); MEAN CORPUSCULAR VOLUME 82.5 fl (82.0-101.0); MEAN PLATELET VOLUME 10.4 fl (7.4-10.4); MONOCYTE # 0.5 10^3/ul (0.3-0.9); MONOCYTES % 7.4 % (0.0-11.0); NEUTROPHIL # 3.7 10^3/ul (1.6-7.5); NEUTROPHILS % 61.2 % (39.0-77.0); PLATELET COUNT 351 10^3/UL (140-415); RED BLOOD COUNT 4.58 10^6/ul (4.70-6.10); RED CELL DISTRIBUTION WIDTH 15.1 % (11.5-14.5); WHITE BLOOD COUNT 6.1 10^3/ul (4.8-10.8)
[2017-04-07 06:55] LABS: ALBUMIN 3.5 g/dl (3.3-4.9); ALBUMIN/GLOBULIN RATIO 1.09; BILIRUBIN,INDIRECT 0.1 mg/dl (0-1.1); BILIRUBIN,TOTAL 0.1 mg/dl (0.2-1.3); CALCIUM 8.4 mg/dl (8.4-10.2); CREATININE 0.48 mg/dl (0.61-1.24); POTASSIUM 3.7 mmol/L (3.5-5.1); TOTAL PROTEIN 6.7 g/dl (6.1-8.1)
[2017-04-07 07:34] VITALS: BP 126/69; RESP 20
[2017-04-07] MEDS: morphine 4 MG/ML VIAL IV PRN ×3 (13:09→22:20)
[2017-04-07] MEDS: SOD CHLORIDE 0.9% 1,000 ML IV SCH (13:14)
[2017-04-07] MEDS: CEFTRIAXONE 1 GM/50 ML (PMX) 50 ML IVPB SCH (18:08)
--- NOTE | 2017-04-07 19:19 | PN ---
Date/Time of Note Date/Time of Note DATE: 04/07/17 TIME: 19:17 Assessment/Plan VTE Prophylaxis VTE Prophylaxis Intervention: other Lines/Catheters IV C[facility]ter Type (from [facility]): Peripheral IV Urinary Cath still in place: No Assessment/Plan Assessment/Plan - Acute proctitis. Continue broad-spectrum antibiotics. - Coagulopathy - Patient is on Coumadin at home- will cont to hold Coumadin as INR is 4.18 today. No s/s of bleeding noted. - Possible UTI per UA follow-up on culture. - Constipation. Continue patient on bowel regimen. - Paraplegia. - Cervical tumor resection. - History of deep venous thrombosis several years ago. Further recommendations based on clinical course. Plan of care discussed with Dr. Treviño. Subjective 24 Hr Interval Summary Free Text/Dictation sleeping, easily awakens, c/o rectal pain, afebrile, dw staff-no rectal bleeding noted, no new issues reported. Gastrointestinal: no complaints Genitourinary: no complaints Musculoskeletal: no complaints Skin: no complaints Exam/Review of Systems Vital Signs Vitals Vital Signs Date Time Temp Pulse Resp B/P Pulse Ox O2 Delivery O2 Flow Rate FiO2 04/07/17 07:34 97.8 54 20 126/69 94 04/07/17 00:49 Room Air 04/05/17 16:30 2.0 Intake and Output 04/06/17 04/06/17 04/07/17 15:00 23:00 07:00 Intake Total 100 ml 2157.5 ml 600 ml Output Total 450 ml Balance 100 ml 1707.5 ml 600 ml Exam Constitutional: alert, well developed ENMT: nl external ears & nose Respiratory: clear to auscultation, normal air movement Cardiovascular: nl pulses, regular rate and rhythm Gastrointestinal: non-tender, soft Musculoskeletal: nl extremities to inspection Extremities: normal pulses Neurological: nl mental status, nl speech Results Result Diagram: 04/07/1715 04/07/17 0515 Results 24 hrs Laboratory Tests Test 04/07/17 05:15 White Blood Count 6.1 Red Blood Count 4.58 L Hemoglobin 12.0 L Hematocrit 37.8 L Mean Corpuscular Volume 82.5 Mean Corpuscular Hemoglobin 26.2 L Mean Corpuscular Hemoglobin Concent 31.7 L Red Cell Distribution Width 15.1 H Platelet Count 351 # Mean Platelet Volume 10.4 Neutrophils % 61.2 Lymphocytes % 26.9 Monocytes % 7.4 Eosinophils % 3.8 Basophils % 0.5 Nucleated Red Blood Cells % 0.0 Neutrophils # 3.7 Lymphocytes # 1.6 Monocytes # 0.5 Eosinophils # 0.2 Basophils # 0.0 Nucleated Red Blood Cells # 0.0 Sodium Level 137 Potassium Level 3.7 Chloride Level 101 Carbon Dioxide Level 31 Anion Gap 9 Blood Urea Nitrogen 5 L Creatinine 0.48 L Glucose Level 82 Calcium Level 8.4 Total Bilirubin 0.1 L Direct Bilirubin 0.00 Indirect Bilirubin 0.1 Aspartate Amino Transf (AST/SGOT) 40 # Alanine Aminotransferase (ALT/SGPT) 66 Alkaline Phosphatase 234 #H Total Protein 6.7 Albumin 3.5 Globulin 3.20 Albumin/Globulin Ratio 1.09 Medications Medications Current Medications Sodium Chloride (NS) 1,000 ml @ 75 mls/hr [id number] IV Last administered on 13:14; Admin Dose 75 MLS/HR; Start 04/05/17 at 15:30 Acetaminophen (Tylenol Tab) 500 mg Q4H PRN PO PAIN LEVEL 1-3 OR FEVER; Start at 15:30 Acetaminophen/ Hydrocodone Bitart ([place] (5/325)) 1 tab Q4H PRN PO PAIN LEVEL 4 -6 Last administered on 04/07/17 05:41; Admin Dose 1 TAB; Start 04/05/17 at 15: 30 Morphine Sulfate 4 mg 4 mg Q4H PRN IV PAIN LEVEL 7-10 Last administered on 18:09; Admin Dose 4 MG; Start 04/05/17 at 19:30 Ceftriaxone Sodium (Rocephin) 50 ml @ 100 mls/hr Q24H IVPB Last administered on 04/07/17 18:08; Admin Dose 100 MLS/HR; Start 04/06/17 at 18:00 CARLOS RESTREPO Apr 07, 2017 19:19
[2017-04-07 19:32] VITALS: BP 108/59; RESP 20
[2017-04-08] MEDS: SOD CHLORIDE 0.9% 1,000 ML IV SCH ×2 (03:59→18:09)
[2017-04-08 07:27] LABS: ADD SCAN DIFF NO; BASOPHILS % 0.6 % (0.0-2.0); EOSINOPHILS # 0.2 10^3/ul (0.0-0.5); EOSINOPHILS % 3.1 % (0.0-7.0); HEMOGLOBIN 11.7 g/dl (14.0-18.0); LYMPHOCYTES # 1.8 10^3/ul (0.8-2.9); LYMPHOCYTES % 28.1 % (15.0-51.0); MEAN CORPUSCULAR HEMOGLOBIN 26.1 pg (29.0-33.0); MEAN CORPUSCULAR HGB CONC 31.6 g/dl (32.0-37.0); MEAN CORPUSCULAR VOLUME 82.4 fl (82.0-101.0); MEAN PLATELET VOLUME 10.6 fl (7.4-10.4); MONOCYTE # 0.5 10^3/ul (0.3-0.9); MONOCYTES % 7.6 % (0.0-11.0); NEUTROPHIL # 3.9 10^3/ul (1.6-7.5); NEUTROPHILS % 60.1 % (39.0-77.0); PLATELET COUNT 390 10^3/UL (140-415); RED BLOOD COUNT 4.49 10^6/ul (4.70-6.10); RED CELL DISTRIBUTION WIDTH 15.2 % (11.5-14.5); WHITE BLOOD COUNT 6.5 10^3/ul (4.8-10.8)
[2017-04-08 07:42] LABS: INR 1.57; PROTIME 18.9 Sec (12.2-14.2); PT RATIO 1.5
[2017-04-08 07:43] LABS: PARTIAL THROMBOPLASTIN TIME 39.5 Sec (25.0-35.0)
[2017-04-08 07:51] LABS: CALCIUM 8.4 mg/dl (8.4-10.2); CREATININE 0.49 mg/dl (0.61-1.24)
[2017-04-08 08:08] VITALS: BP 141/78; RESP 17
[2017-04-08] MEDS: HYDROCODONE/APAP (5/325) TAB PO PRN ×2 (09:35→18:11)
[2017-04-08] MEDS: morphine 4 MG/ML VIAL IV PRN ×2 (14:46→20:06)
[2017-04-08] MEDS: CEFTRIAXONE 1 GM/50 ML (PMX) 50 ML IVPB SCH (18:09)
--- NOTE | 2017-04-08 18:30 | PN ---
Date/Time of Note Date/Time of Note DATE: 04/08/17 TIME: 18:30 Assessment/Plan VTE Prophylaxis VTE Prophylaxis Intervention: SCD's Lines/Catheters [facility] Type (from [facility]): Peripheral IV Urinary Cath still in place: No Assessment/Plan Chief Complaint/Hosp Course Patient complains of pain requiring pain medication. Assessment/Plan - Acute proctitis. Continue broad-spectrum antibiotics. - E-coli UTI , continue Rocephin. - Constipation. Continue patient on bowel regimen. - Paraplegia. - Cervical tumor resection. - History of deep venous thrombosis several years ago. Further recommendations based on clinical course. Plan of care discussed with Dr. Treviño. Problems: Exam/Review of Systems Vital Signs Vitals Vital Signs Date Time Temp Pulse Resp B/P Pulse Ox O2 Delivery O2 Flow Rate FiO2 04/08/17 08:08 98.1 59 17 141/78 94 04/07/17 00:49 Room Air 04/05/17 16:30 2.0 Intake and Output 04/07/17 04/07/17 04/08/17 15:00 23:00 07:00 Intake Total 625 ml 1800 ml 1750 ml Output Total 550 ml 950 ml 1050 ml Balance 75 ml 850 ml 700 ml Exam Constitutional: alert, oriented Head: normocephalic Neck: non-tender, supple Respiratory: clear to auscultation Cardiovascular: nl pulses Gastrointestinal: other (Left lower quadrant tenderness), soft Extremities: normal pulses Results Result Diagram: 04/08/17 0600 04/08/17 0600 Results 24 hrs Laboratory Tests Test 04/08/17 06:00 White Blood Count 6.5 Red Blood Count 4.49 L Hemoglobin 11.7 L Hematocrit 37.0 L Mean Corpuscular Volume 82.4 Mean Corpuscular Hemoglobin 26.1 L Mean Corpuscular Hemoglobin Concent 31.6 L Red Cell Distribution Width 15.2 H Platelet Count 390 Mean Platelet Volume 10.6 H Neutrophils % 60.1 Lymphocytes % 28.1 Monocytes % 7.6 Eosinophils % 3.1 Basophils % 0.6 Nucleated Red Blood Cells % 0.0 Neutrophils # 3.9 Lymphocytes # 1.8 Monocytes # 0.5 Eosinophils # 0.2 Basophils # 0.0 Nucleated Red Blood Cells # 0.0 Prothrombin Time 18.9 #H Prothrombin Time Ratio 1.5 INR International Normalized Ratio 1.57 Activated Partial Thromboplast Time 39.5 H Sodium Level 141 Potassium Level 4.0 Chloride Level 101 Carbon Dioxide Level 30 Anion Gap 14 Blood Urea Nitrogen 6 L Creatinine 0.49 L Glucose Level 89 Calcium Level 8.4 Medications Medications Current Medications Sodium Chloride (NS) 1,000 ml @ 75 mls/hr [id number] IV Last administered on 18:09; Admin Dose 75 MLS/HR; Start 04/05/17 at 15:30 Acetaminophen (Tylenol Tab) 500 mg Q4H PRN PO PAIN LEVEL 1-3 OR FEVER; Start at 15:30 Acetaminophen/ Hydrocodone Bitart ([place] (5/325)) 1 tab Q4H PRN PO PAIN LEVEL 4 -6 Last administered on 04/08/17 18:11; Admin Dose 1 TAB; Start 04/05/17 at 15: 30 Morphine Sulfate 4 mg 4 mg Q4H PRN IV PAIN LEVEL 7-10 Last administered on 14:46; Admin Dose 4 MG; Start 04/05/17 at 19:30 Ceftriaxone Sodium (Rocephin) 50 ml @ 100 mls/hr Q24H IVPB Last administered on 04/08/17 18:09; Admin Dose 100 MLS/HR; Start 04/06/17 at 18:00 LIZETH LOCKHART Apr 08, 2017 18:30
[2017-04-08 22:10] VITALS: BP 142/76; RESP 16
[2017-04-09] MEDS: morphine 4 MG/ML VIAL IV PRN ×3 (06:16→20:27)
[2017-04-09 07:45] VITALS: BP 138/72; RESP 18
[2017-04-09] MEDS: DOCUSATE SODIUM 100 MG CAP PO SCH ×2 (08:42→20:25)
[2017-04-09] MEDS: CEFTRIAXONE 1 GM/50 ML (PMX) 50 ML IVPB SCH (17:32)
--- NOTE | 2017-04-09 17:41 | PN ---
Date/Time of Note Date/Time of Note DATE: 04/09/17 TIME: 17:35 Assessment/Plan VTE Prophylaxis VTE Prophylaxis Intervention: other Lines/Catheters IV Catheter Type (from [facility]): Peripheral IV Urinary Cath still in place: No Assessment/Plan Assessment/Plan - Acute proctitis. Continue broad-spectrum antibiotics. - E-coli UTI , continue Rocephin. - Constipation. Continue patient on bowel regimen. - Paraplegia. - Cervical tumor resection. - History of deep venous thrombosis several years ago. Further recommendations based on clinical course. Plan of care discussed with Dr. Treviño. Subjective 24 Hr Interval Summary Free Text/Dictation Patient complains of pain , wants some pain med. dw satff- no new events reported overnight.no rectal bleeding reported Respiratory: no complaints Cardiovascular: no complaints Gastrointestinal: no complaints Genitourinary: other (pain) Exam/Review of Systems Vital Signs Vitals Vital Signs Date Time Temp Pulse Resp B/P Pulse Ox O2 Delivery O2 Flow Rate FiO2 04/09/17 07:45 98.8 18 18 138/72 96 04/07/17 00:49 Room Air 04/05/17 16:30 2.0 Intake and Output 04/08/17 04/08/17 04/09/17 15:00 23:00 07:00 Intake Total 2200 ml 1510 ml Output Total 1250 ml 1600 ml Balance 950 ml -90 ml Exam Constitutional: alert Respiratory: clear to auscultation, normal air movement Cardiovascular: nl pulses, regular rate and rhythm Gastrointestinal: non-tender, soft Musculoskeletal: nl extremities to inspection Extremities: normal pulses Neurological: nl speech Skin: other Results Result Diagram: 04/08/17 0600 04/08/17 0600 Medications Medications Current Medications Sodium Chloride (NS) 1,000 ml @ 30 mls/hr Q24H IV Last administered on 18:09; Admin Dose 75 MLS/HR; Start 04/05/17 at 15:30 Acetaminophen (Tylenol Tab) 500 mg Q4H PRN PO PAIN LEVEL 1-3 OR FEVER; Start at 15:30 Acetaminophen/ Hydrocodone Bitart ([place] (5/325)) 1 tab Q4H PRN PO PAIN LEVEL 4 -6 Last administered on 04/08/17 18:11; Admin Dose 1 TAB; Start 04/05/17 at 15: 30 Morphine Sulfate 4 mg 4 mg Q4H PRN IV PAIN LEVEL 7-10 Last administered on 13:10; Admin Dose 4 MG; Start 04/05/17 at 19:30 Ceftriaxone Sodium (Rocephin) 50 ml @ 100 mls/hr Q24H IVPB Last administered on 04/09/17 17:32; Admin Dose 100 MLS/HR; Start 04/06/17 at 18:00 Docusate Sodium (Colace) 100 mg BID PO Last administered on 04/09/17 08:42; Admin Dose 100 MG; Start 04/09/17 at 09:00 CARLOS RESTREPO Apr 09, 2017 17:41
[2017-04-09 21:27] VITALS: BP 146/77; RESP 19
[2017-04-09 22:00] VITALS: BP 132/74; PULSE 62; RESP 18
[2017-04-10] MEDS: morphine 4 MG/ML VIAL IV PRN ×4 (04:18→20:44)
[2017-04-10 05:19] LABS: ADD SCAN DIFF NO
[2017-04-10 05:26] LABS: BASOPHILS % 0.5 % (0.0-2.0); EOSINOPHILS # 0.2 10^3/ul (0.0-0.5); EOSINOPHILS % 3.6 % (0.0-7.0); HEMATOCRIT 36.2 % (42.0-52.0); HEMOGLOBIN 11.3 g/dl (14.0-18.0); LYMPHOCYTES # 1.8 10^3/ul (0.8-2.9); LYMPHOCYTES % 28.1 % (15.0-51.0); MEAN CORPUSCULAR HEMOGLOBIN 25.7 pg (29.0-33.0); MEAN CORPUSCULAR HGB CONC 31.2 g/dl (32.0-37.0); MEAN CORPUSCULAR VOLUME 82.5 fl (82.0-101.0); MONOCYTE # 0.5 10^3/ul (0.3-0.9); NEUTROPHIL # 3.9 10^3/ul (1.6-7.5); NEUTROPHILS % 60.3 % (39.0-77.0); PLATELET COUNT 370 10^3/UL (140-415); RED BLOOD COUNT 4.39 10^6/ul (4.70-6.10); RED CELL DISTRIBUTION WIDTH 15.1 % (11.5-14.5); WHITE BLOOD COUNT 6.4 10^3/ul (4.8-10.8)
[2017-04-10 05:45] LABS: INR 1.13; PROTIME 14.5 Sec (12.2-14.2); PT RATIO 1.1
[2017-04-10 05:46] LABS: PARTIAL THROMBOPLASTIN TIME 31.5 Sec (25.0-35.0)
[2017-04-10 06:00] LABS: ALBUMIN 3.5 g/dl (3.3-4.9); ALBUMIN/GLOBULIN RATIO 1.12; BILIRUBIN,INDIRECT 0.1 mg/dl (0-1.1); BILIRUBIN,TOTAL 0.1 mg/dl (0.2-1.3); CALCIUM 8.6 mg/dl (8.4-10.2); CREATININE 0.57 mg/dl (0.61-1.24); POTASSIUM 4.4 mmol/L (3.5-5.1); TOTAL PROTEIN 6.6 g/dl (6.1-8.1)
[2017-04-10 08:10] VITALS: BP 131/71; RESP 18
[2017-04-10] MEDS: DOCUSATE SODIUM 100 MG CAP PO SCH ×2 (08:44→20:44)
[2017-04-10] MEDS: SOD CHLORIDE 0.9% 1,000 ML IV SCH (12:50)
[2017-04-10] MEDS: CEFTRIAXONE 1 GM/50 ML (PMX) 50 ML IVPB SCH (17:45)
--- NOTE | 2017-04-10 19:19 | PN ---
Date/Time of Note Date/Time of Note DATE: 04/10/17 TIME: 19:17 Assessment/Plan VTE Prophylaxis VTE Prophylaxis Intervention: other Lines/Catheters IV [facility] (from [facility]): Peripheral IV Urinary Cath still in place: No Assessment/Plan Assessment/Plan - Acute proctitis. Continue broad-spectrum antibiotics. - E-coli UTI , continue Rocephin. - Constipation. Continue patient on bowel regimen. - Paraplegia. - Cervical tumor resection. - History of deep venous thrombosis several years ago. Further recommendations based on clinical course. Plan of care discussed with Dr. Treviño. Subjective 24 Hr Interval Summary Free Text/Dictation Patient complains of rectal pain. dw safe- no new events reported overnight.no rectal bleeding reported Respiratory: no complaints Cardiovascular: no complaints Gastrointestinal: other (redctal pain) Skin: no complaints Exam/Review of Systems Vital Signs Vitals Vital Signs Date Time Temp Pulse Resp B/P Pulse Ox O2 Delivery O2 Flow Rate FiO2 04/10/17 08:10 97.7 57 18 131/71 92 04/09/17 22:00 Room Air Intake and Output 04/09/17 04/09/17 04/10/17 15:00 23:00 07:00 Intake Total 1060 ml 685 ml Output Total 990 ml 1150 ml Balance 70 ml -465 ml Exam Constitutional: alert, well developed Respiratory: clear to auscultation, normal air movement Cardiovascular: nl pulses, regular rate and rhythm Gastrointestinal: non-tender, soft Musculoskeletal: muscle weakness Extremities: normal pulses Neurological: other (paraplegic) Skin: other Lymph: nontender Results Result Diagram: 04/10/17 0458 04/10/17 0458 Results 24 hrs Laboratory Tests Test 04/10/17 04:58 White Blood Count 6.4 Red Blood Count 4.39 L Hemoglobin 11.3 L Hematocrit 36.2 L Mean Corpuscular Volume 82.5 Mean Corpuscular Hemoglobin 25.7 L Mean Corpuscular Hemoglobin Concent 31.2 L Red Cell Distribution Width 15.1 H Platelet Count 370 Mean Platelet Volume 10.0 Neutrophils % 60.3 Lymphocytes % 28.1 Monocytes % 7.0 Eosinophils % 3.6 Basophils % 0.5 Nucleated Red Blood Cells % 0.0 Neutrophils # 3.9 Lymphocytes # 1.8 Monocytes # 0.5 Eosinophils # 0.2 Basophils # 0.0 Nucleated Red Blood Cells # 0.0 Prothrombin Time 14.5 #H Prothrombin Time Ratio 1.1 INR International Normalized Ratio 1.13 Activated Partial Thromboplast Time 31.5 Sodium Level 140 Potassium Level 4.4 Chloride Level 103 Carbon Dioxide Level 30 Anion Gap 11 Blood Urea Nitrogen 11 Creatinine 0.57 L Glucose Level 91 Calcium Level 8.6 Total Bilirubin 0.1 L Direct Bilirubin 0.00 Indirect Bilirubin 0.1 Aspartate Amino Transf (AST/SGOT) 42 Alanine Aminotransferase (ALT/SGPT) 76 H Alkaline Phosphatase 193 H Total Protein 6.6 Albumin 3.5 Globulin 3.10 Albumin/Globulin Ratio 1.12 Medications Medications Current Medications Sodium Chloride (NS) 1,000 ml @ 30 mls/hr Q24H IV Last administered on 18:09; Admin Dose 75 MLS/HR; Start 04/05/17 at 15:30 Acetaminophen (Tylenol Tab) 500 mg Q4H PRN PO PAIN LEVEL 1-3 OR FEVER; Start at 15:30 Acetaminophen/ Hydrocodone Bitart ([place] (5/325)) 1 tab Q4H PRN PO PAIN LEVEL 4 -6 Last administered on 04/08/17 18:11; Admin Dose 1 TAB; Start 04/05/17 at 15: 30 Morphine Sulfate 4 mg 4 mg Q4H PRN IV PAIN LEVEL 7-10 Last administered on 15:00; Admin Dose 4 MG; Start 04/05/17 at 19:30 Ceftriaxone Sodium (Rocephin) 50 ml @ 100 mls/hr Q24H IVPB Last administered on 04/10/17 17:45; Admin Dose 100 MLS/HR; Start 04/06/17 at 18:00 Docusate Sodium (Colace) 100 mg BID PO Last administered on 04/10/17 08:44; Admin Dose 100 MG; Start 04/09/17 at 09:00 CARLOS RESTREPO Apr 10, 2017 19:19
[2017-04-10 20:18] VITALS: BP 138/71; RESP 16
[2017-04-11] MEDS: SOD CHLORIDE 0.9% 1,000 ML IV SCH (04:02)
[2017-04-11 05:58] LABS: ADD SCAN DIFF NO
[2017-04-11 06:08] LABS: BASOPHILS % 0.6 % (0.0-2.0); EOSINOPHILS # 0.2 10^3/ul (0.0-0.5); EOSINOPHILS % 3.2 % (0.0-7.0); HEMATOCRIT 38.7 % (42.0-52.0); HEMOGLOBIN 12.2 g/dl (14.0-18.0); LYMPHOCYTES % 28.3 % (15.0-51.0); MEAN CORPUSCULAR HGB CONC 31.5 g/dl (32.0-37.0); MEAN CORPUSCULAR VOLUME 82.3 fl (82.0-101.0); MEAN PLATELET VOLUME 10.2 fl (7.4-10.4); MONOCYTE # 0.5 10^3/ul (0.3-0.9); MONOCYTES % 7.2 % (0.0-11.0); NEUTROPHIL # 4.3 10^3/ul (1.6-7.5); NEUTROPHILS % 60.1 % (39.0-77.0); PLATELET COUNT 387 10^3/UL (140-415); RED CELL DISTRIBUTION WIDTH 15.6 % (11.5-14.5); WHITE BLOOD COUNT 7.2 10^3/ul (4.8-10.8)
[2017-04-11 06:39] LABS: CALCIUM 8.9 mg/dl (8.4-10.2); CREATININE 0.57 mg/dl (0.61-1.24); POTASSIUM 4.8 mmol/L (3.5-5.1)
[2017-04-11 07:44] VITALS: BP 168/77; RESP 16
[2017-04-11] MEDS: DOCUSATE SODIUM 100 MG CAP PO SCH ×2 (08:57→20:50)
[2017-04-11] MEDS: HYDROCODONE/APAP (5/325) TAB PO PRN ×2 (08:58→13:21)
--- NOTE | 2017-04-11 14:53 | PN ---
Date/Time of Note Date/Time of Note DATE: 04/11/17 TIME: 14:51 Assessment/Plan VTE Prophylaxis VTE Prophylaxis Intervention: SCD's Lines/Catheters [facility] Peripheral IV Urinary Cath still in place: No Assessment/Plan Chief Complaint/Hosp Course Patient denies any nausea vomiting complaints of significant significant amount of pain. Stool for C. difficile reordered. Assessment/Plan - Acute proctitis. Continue broad-spectrum antibiotics. Dr. Medina is asked to see patient in gastroenterology consultation - E-coli UTI , continue Rocephin. - Constipation. Continue patient on bowel regimen. - Paraplegia. - Cervical tumor resection. - History of deep venous thrombosis several years ago. Further recommendations based on clinical course. Plan of care discussed with Dr. Treviño. Problems: Exam/Review of Systems Vital Signs Vitals Vital Signs Date Time Temp Pulse Resp B/P Pulse Ox O2 Delivery O2 Flow Rate FiO2 04/11/17 07:44 98.3 58 16 168/77 92 04/09/17 22:00 Room Air Intake and Output 04/10/17 04/10/17 04/11/17 15:00 23:00 07:00 Intake Total 1650 ml 720 ml Output Total 730 ml 1500 ml Balance 920 ml -780 ml Exam Constitutional: alert, oriented Head: normocephalic Neck: non-tender, supple Respiratory: clear to auscultation Cardiovascular: nl pulses Gastrointestinal: other (Left lower quadrant tenderness), soft Extremities: normal pulses Results Result Diagram: 04/11/17 0520 04/11/17 0520 Results 24 hrs Laboratory Tests Test 04/11/17 05:20 White Blood Count 7.2 Red Blood Count 4.70 Hemoglobin 12.2 L Hematocrit 38.7 L Mean Corpuscular Volume 82.3 Mean Corpuscular Hemoglobin 26.0 L Mean Corpuscular Hemoglobin Concent 31.5 L Red Cell Distribution Width 15.6 H Platelet Count 387 Mean Platelet Volume 10.2 Neutrophils % 60.1 Lymphocytes % 28.3 Monocytes % 7.2 Eosinophils % 3.2 Basophils % 0.6 Nucleated Red Blood Cells % 0.0 Neutrophils # 4.3 Lymphocytes # 2.0 Monocytes # 0.5 Eosinophils # 0.2 Basophils # 0.0 Nucleated Red Blood Cells # 0.0 Sodium Level 140 Potassium Level 4.8 Chloride Level 102 Carbon Dioxide Level 32 H Anion Gap 11 Blood Urea Nitrogen 12 Creatinine 0.57 L Glucose Level 90 Calcium Level 8.9 Medications Medications Current Medications Sodium Chloride (NS) 1,000 ml @ 30 mls/hr Q24H IV Last administered on 04:02; Admin Dose 30 MLS/HR; Start 04/05/17 at 15:30 Acetaminophen (Tylenol Tab) 500 mg Q4H PRN PO PAIN LEVEL 1-3 OR FEVER; Start at 15:30 Acetaminophen/ Hydrocodone Bitart ([place] (5/325)) 1 tab Q4H PRN PO PAIN LEVEL 4 -6 Last administered on 04/11/17 13:21; Admin Dose 1 TAB; Start 04/05/17 at 15: 30 Morphine Sulfate 4 mg 4 mg Q4H PRN IV PAIN LEVEL 7-10 Last administered on 20:44; Admin Dose 4 MG; Start 04/05/17 at 19:30 Ceftriaxone Sodium (Rocephin) 50 ml @ 100 mls/hr Q24H IVPB Last administered on 04/10/17 17:45; Admin Dose 100 MLS/HR; Start 04/06/17 at 18:00 Docusate Sodium (Colace) 100 mg BID PO Last administered on 04/11/17 08:57; Admin Dose 100 MG; Start 04/09/17 at 09:00 LIZETH LOCKHART Apr 11, 2017 14:53
[2017-04-11] MEDS: morphine 4 MG/ML VIAL IV PRN (17:26)
[2017-04-11] MEDS: CEFTRIAXONE 1 GM/50 ML (PMX) 50 ML IVPB SCH (17:26)
[2017-04-11 17:29] VITALS: BP 134/80; PULSE 82
[2017-04-11 20:22] VITALS: BP 137/76; RESP 18
--- NOTE | 2017-04-11 21:41 | CONS ---
DATE OF ADMISSION: 04/05/2017 DATE OF CONSULTATION: REFERRING PHYSICIAN: Dr. Charisma Haley Dear Dr. Haley: Thank you for your referral. HISTORY OF PRESENT ILLNESS: The patient is a 71-year-old male with a history of a neck tumor for wh ich he had resection several years ago, also known to have paraplegia after the neck tumor resection admitted to the hospital for right-sided abdominal pain, back pain, and some diarrhea. The patient had a CAT scan done, which showed proctitis. No ureteral stones. He also had a compression fractu re of the L3, also to L1-L4. PAST MEDICAL HISTORY: As described. PAST SURGICAL HISTORY: Neck tumor resection. SOCIAL HISTORY: No smoking, no alcohol. The patient lives with family. MEDICATIONS: He is on Coumadin for his DVT. PHYSICAL EXAMINATION: GENERAL: Alert, awake, not in distress. VITAL SIGNS: Stable. HEENT: Unremarkable. NECK: Supple. No thyromegaly, no lymphadenopathy. CARDIOVASCULAR: No murmur, gallop, or click. LUNGS: Clear. ABDOMEN: Benign. EXTREMITIES: No edema. CENTRAL NERVOUS SYSTEM: Grossly within normal limit. LABORATORY DATA: Showed a hematocrit of 38. WBC is 7.2, within normal limits. CMP was within norm al limit. Alkaline phosphatase was elevated at 193, SGOT also, SGPT also were elevated. CAT scan o f the abdomen and pelvis shows lungs were clear. The gallbladder was removed. The liver was normal size with no ductal dilatation. The patient also had a constipated colon. IMPRESSION: 1. Paraplegia. 2. Proctitis, which is the cause of his rectal pain. 3. Diarrhea, which is due to the fecal impaction with overflow syndrome. 4. Escherichia coli urinary tract infection. 5. Deep venous thrombosis. 6. Abnormal liver function tests with elevation of alkaline phosphatase, negative CT scan of the li sanchez and biliary system. PLAN: 1. At this point, is to start the patient on Amitiza, which will help this patient for opioid-induc ed constipation. 2. Will send stool for occult blood. 3. Monitor LFTs periodically. 4. If the rectal pain persists, then we will proceed with colonoscopy or flexible sigmoidoscopy. Dictated By: LETTY FLORES/JASMIN Conf#: [id number] DID#: [id number] CC: CHARISMA HALEY MD; LETTY MORENO MD;*End*
[2017-04-12] MEDS: morphine 4 MG/ML VIAL IV PRN ×4 (01:38→21:46)
[2017-04-12 06:06] LABS: ADD SCAN DIFF NO
[2017-04-12 06:14] LABS: BASOPHILS % 0.3 % (0.0-2.0); EOSINOPHILS # 0.1 10^3/ul (0.0-0.5); EOSINOPHILS % 0.5 % (0.0-7.0); HEMATOCRIT 44.1 % (42.0-52.0); HEMOGLOBIN 14.1 g/dl (14.0-18.0); LYMPHOCYTES # 1.8 10^3/ul (0.8-2.9); LYMPHOCYTES % 13.5 % (15.0-51.0); MEAN CORPUSCULAR HEMOGLOBIN 26.1 pg (29.0-33.0); MEAN CORPUSCULAR VOLUME 81.7 fl (82.0-101.0); MONOCYTE # 0.8 10^3/ul (0.3-0.9); MONOCYTES % 6.5 % (0.0-11.0); NEUTROPHIL # 10.3 10^3/ul (1.6-7.5); NEUTROPHILS % 78.8 % (39.0-77.0); PLATELET COUNT 491 10^3/UL (140-415); RED CELL DISTRIBUTION WIDTH 15.8 % (11.5-14.5)
[2017-04-12 06:47] LABS: CALCIUM 8.5 mg/dl (8.4-10.2); CREATININE 0.55 mg/dl (0.61-1.24); POTASSIUM 4.6 mmol/L (3.5-5.1)
[2017-04-12 08:06] VITALS: BP 106/75; RESP 18
[2017-04-12] MEDS: DOCUSATE SODIUM 100 MG CAP PO SCH ×4 (08:33→21:44)
[2017-04-12] MEDS: SOD CHLORIDE 0.9% 1,000 ML IV SCH (14:26)
[2017-04-12] MEDS: metroNIDAZOLE 500 MG/NS (PMX) 100 ML IVPB SCH ×2 (14:26→21:45)
--- NOTE | 2017-04-12 15:35 | PN ---
Date/Time of Note Date/Time of Note DATE: 04/12/17 TIME: 15:29 Assessment/Plan VTE Prophylaxis VTE Prophylaxis Intervention: SCD's Lines/Catheters IV [facility]ter Type (from [facility]): Peripheral IV Urinary Cath still in place: No Assessment/Plan Chief Complaint/Hosp Course Patient with increased leukocytosis, however, no fever, patient started on meropenem. Assessment/Plan - Acute proctitis. Continue abx. Dr. Medina is is following in gastroenterology consultation - E-coli UTI , continue antibiotics. - Constipation. Continue patient on bowel regimen. - Paraplegia. - Cervical tumor resection. - Fecal impaction with overflow symptoms, continue bowel regimen per GI. - History of deep venous thrombosis several years ago. Further recommendations based on clinical course. Plan of care discussed with Dr. Treviño. Problems: Exam/Review of Systems Vital Signs Vitals Vital Signs Date Time Temp Pulse Resp B/P Pulse Ox O2 Delivery O2 Flow Rate FiO2 04/12/17 08:06 99.0 93 18 106/75 92 04/09/17 22:00 Room Air Intake and Output 04/11/17 04/11/17 04/12/17 15:00 23:00 07:00 Intake Total 1660 ml 1010 ml Output Total 350 ml 650 ml Balance 1310 ml 360 ml Exam Constitutional: alert, oriented Head: normocephalic Neck: non-tender, supple Respiratory: clear to auscultation Cardiovascular: nl pulses Gastrointestinal: other (Left lower quadrant tenderness), soft Extremities: normal pulses Results Result Diagram: 04/12/17 0542 04/12/17 0542 Results 24 hrs Laboratory Tests Test 04/12/17 05:42 White Blood Count 13.0 #H Red Blood Count 5.40 Hemoglobin 14.1 Hematocrit 44.1 Mean Corpuscular Volume 81.7 L Mean Corpuscular Hemoglobin 26.1 L Mean Corpuscular Hemoglobin Concent 32.0 Red Cell Distribution Width 15.8 H Platelet Count 491 #H Mean Platelet Volume 10.0 Neutrophils % 78.8 H Lymphocytes % 13.5 L Monocytes % 6.5 Eosinophils % 0.5 Basophils % 0.3 Nucleated Red Blood Cells % 0.0 Neutrophils # 10.3 H Lymphocytes # 1.8 Monocytes # 0.8 Eosinophils # 0.1 Basophils # 0.0 Nucleated Red Blood Cells # 0.0 Sodium Level 140 Potassium Level 4.6 Chloride Level 104 Carbon Dioxide Level 26 Anion Gap 15 Blood Urea Nitrogen 13 Creatinine 0.55 L Glucose Level 128 Calcium Level 8.5 Medications Medications Current Medications Sodium Chloride (NS) 1,000 ml @ 30 mls/hr Q24H IV Last administered on 14:26; Admin Dose 30 MLS/HR; Start 04/05/17 at 15:30 Acetaminophen (Tylenol Tab) 500 mg Q4H PRN PO PAIN LEVEL 1-3 OR FEVER; Start at 15:30 Acetaminophen/ Hydrocodone Bitart ([place] (5/325)) 1 tab Q4H PRN PO PAIN LEVEL 4 -6 Last administered on 04/11/17 13:21; Admin Dose 1 TAB; Start 04/05/17 at 15: 30 Morphine Sulfate (morphine) 4 mg Q4H PRN IV PAIN LEVEL 7-10 Last administered on 04/12/17 08:34; Admin Dose 4 MG; Start 04/05/17 at 19:30 Docusate Sodium 100 mg 100 mg BID PO Last administered on 04/11/17 20:50; Admin Dose 100 MG; Start 04/09/17 at 09:00 Meropenem 100 ml @ 200 mls/hr Q6 IVPB ; Start 04/12/17 at 18:00 Metronidazole (Flagyl 500 Mg (Pmx)) 100 ml @ 100 mls/hr Q8 IVPB Last administered on 04/12/17 14:26; Admin Dose 100 MLS/HR; Start 04/12/17 at 14:00 LIZETH LOCKHART Apr 12, 2017 15:35
[2017-04-12] MEDS: MEROPENEM 500 MG/100 ML (PMX) 100 ML IVPB SCH (17:59)
[2017-04-12 20:18] VITALS: BP 85/50; RESP 20
--- NOTE | 2017-04-12 22:23 | CONS ---
Date/Time of Note Date/Time of Note DATE: 04/12/17 TIME: 22:23 Assessment/Plan Assessment/Plan Additional Assessment/Plan IMPRESSION: 1. Paraplegia. 2. Proctitis, which is the cause of his rectal pain. 3. Diarrhea, which is due to the fecal impaction with overflow syndrome. 4. Escherichia coli urinary tract infection. 5. Deep venous thrombosis. 6. Abnormal liver function tests with elevation of alkaline phosphatase, negative CT scan of the liver and biliary system. PLAN: 1. At this point, is to start the patient on Amitiza, which will help this patient for opioid-induced constipation. 2. Will send stool for occult blood. 3. Monitor LFTs periodically. 4. If the rectal pain persists, then we will proceed with colonoscopy or flexible sigmoidoscopy. Consultation Date/Type/Reason Admit Date/Time April 05, 2017 at 12:17 Initial Consult Date 24 HR Interval Summary Constitutional: no complaints Exam/Review of Systems Vital Signs Vitals Vital Signs Date Time Temp Pulse Resp B/P Pulse Ox O2 Delivery O2 Flow Rate FiO2 04/12/17 20:18 97.7 61 20 85/50 93 04/09/17 22:00 Room Air Intake and Output 04/11/17 04/11/17 04/12/17 15:00 23:00 07:00 Intake Total 1660 ml 1010 ml Output Total 350 ml 650 ml Balance 1310 ml 360 ml Exam Constitutional: alert, oriented, well developed Psych: nl mood/affect, no complaints Head: atraumatic, normocephalic Eyes: EOMI, PERRL, nl conjunctiva, nl lids, nl sclera ENMT: nl external ears & nose, nl lips & teeth, nl nasal mucosa & septum Neck: non-tender, supple Respiratory: clear to auscultation, normal air movement Cardiovascular: nl pulses, regular rate and rhythm Gastrointestinal: nl liver, spleen, non-tender, soft Musculoskeletal: nl extremities to inspection, nl gait and stance Extremities: normal pulses Neurological: ICU RN II-XII intact, nl mental status, nl speech, nl strength Skin: nl turgor, No rash or lesions Lymph: nl lymph nodes Results Result Diagram: 04/12/17 0542 04/12/17 0542 Results 24 hrs Laboratory Tests Test 04/12/17 05:42 White Blood Count 13.0 #H Red Blood Count 5.40 Hemoglobin 14.1 Hematocrit 44.1 Mean Corpuscular Volume 81.7 L Mean Corpuscular Hemoglobin 26.1 L Mean Corpuscular Hemoglobin Concent 32.0 Red Cell Distribution Width 15.8 H Platelet Count 491 #H Mean Platelet Volume 10.0 Neutrophils % 78.8 H Lymphocytes % 13.5 L Monocytes % 6.5 Eosinophils % 0.5 Basophils % 0.3 Nucleated Red Blood Cells % 0.0 Neutrophils # 10.3 H Lymphocytes # 1.8 Monocytes # 0.8 Eosinophils # 0.1 Basophils # 0.0 Nucleated Red Blood Cells # 0.0 Sodium Level 140 Potassium Level 4.6 Chloride Level 104 Carbon Dioxide Level 26 Anion Gap 15 Blood Urea Nitrogen 13 Creatinine 0.55 L Glucose Level 128 Calcium Level 8.5 Medications Medications Current Medications Sodium Chloride (NS) 1,000 ml @ 30 mls/hr Q24H IV Last administered on 14:26; Admin Dose 30 MLS/HR; Start 04/05/17 at 15:30 Acetaminophen (Tylenol Tab) 500 mg Q4H PRN PO PAIN LEVEL 1-3 OR FEVER; Start at 15:30 Acetaminophen/ Hydrocodone Bitart ([place] (5/325)) 1 tab Q4H PRN PO PAIN LEVEL 4 -6 Last administered on 04/11/17 13:21; Admin Dose 1 TAB; Start 04/05/17 at 15: 30 Morphine Sulfate (morphine) 4 mg Q4H PRN IV PAIN LEVEL 7-10 Last administered on 04/12/17 21:46; Admin Dose 4 MG; Start 04/05/17 at 19:30 Docusate Sodium 100 mg 100 mg BID PO Last administered on 04/11/17 20:50; Admin Dose 100 MG; Start 04/09/17 at 09:00 Meropenem 100 ml @ 200 mls/hr Q6 IVPB Last administered on 04/12/17 17:59; Admin Dose 200 MLS/HR; Start 04/12/17 at 18:00 Metronidazole (Flagyl 500 Mg (Pmx)) 100 ml @ 100 mls/hr Q8 IVPB Last administered on 04/12/17 21:45; Admin Dose 100 MLS/HR; Start 04/12/17 at 14:00 ELTTY MORENO MD Apr 12, 2017 22:23
[2017-04-13] MEDS: MEROPENEM 500 MG/100 ML (PMX) 100 ML IVPB SCH ×4 (01:13→17:03)
[2017-04-13] MEDS: metroNIDAZOLE 500 MG/NS (PMX) 100 ML IVPB SCH ×3 (05:05→21:01)
[2017-04-13 05:51] LABS: ADD SCAN DIFF NO
[2017-04-13 05:56] LABS: BASOPHILS % 0.4 % (0.0-2.0); EOSINOPHILS # 0.4 10^3/ul (0.0-0.5); EOSINOPHILS % 4.7 % (0.0-7.0); HEMATOCRIT 35.8 % (42.0-52.0); HEMOGLOBIN 11.2 g/dl (14.0-18.0); LYMPHOCYTES # 1.9 10^3/ul (0.8-2.9); LYMPHOCYTES % 24.9 % (15.0-51.0); MEAN CORPUSCULAR HEMOGLOBIN 25.9 pg (29.0-33.0); MEAN CORPUSCULAR HGB CONC 31.3 g/dl (32.0-37.0); MEAN CORPUSCULAR VOLUME 82.9 fl (82.0-101.0); MEAN PLATELET VOLUME 10.2 fl (7.4-10.4); MONOCYTE # 0.7 10^3/ul (0.3-0.9); MONOCYTES % 8.5 % (0.0-11.0); NEUTROPHIL # 4.8 10^3/ul (1.6-7.5); NEUTROPHILS % 61.2 % (39.0-77.0); PLATELET COUNT 335 10^3/UL (140-415); RED BLOOD COUNT 4.32 10^6/ul (4.70-6.10); RED CELL DISTRIBUTION WIDTH 15.9 % (11.5-14.5); WHITE BLOOD COUNT 7.8 10^3/ul (4.8-10.8)
[2017-04-13 07:06] LABS: ALBUMIN 3.2 g/dl (3.3-4.9); ALBUMIN/GLOBULIN RATIO 1.18; BILIRUBIN,INDIRECT 0.2 mg/dl (0-1.1); BILIRUBIN,TOTAL 0.2 mg/dl (0.2-1.3); CALCIUM 8.1 mg/dl (8.4-10.2); CREATININE 0.56 mg/dl (0.61-1.24); POTASSIUM 4.1 mmol/L (3.5-5.1); TOTAL PROTEIN 5.9 g/dl (6.1-8.1)
[2017-04-13] MEDS: morphine 4 MG/ML VIAL IV PRN ×2 (07:59→20:51)
[2017-04-13] MEDS: DOCUSATE SODIUM 100 MG CAP PO SCH ×2 (08:00→20:50)
[2017-04-13] MEDS: SOD CHLORIDE 0.9% 1,000 ML IV SCH (12:50)
--- NOTE | 2017-04-13 19:09 | PN ---
Date/Time of Note Date/Time of Note DATE: 04/13/17 TIME: 19:07 Assessment/Plan VTE Prophylaxis VTE Prophylaxis Intervention: SCD's Lines/Catheters [facility] (from [facility] Peripheral IV Urinary Cath still in place: No Assessment/Plan Chief Complaint/Hosp Course Patient stated that his pain is well controlled, remains afebrile. Assessment/Plan - Acute proctitis. Continue abx. Dr. Medina is is following in gastroenterology consultation - E-coli UTI , continue antibiotics. - Constipation. Continue patient on bowel regimen. - Paraplegia. - Cervical tumor resection. - Fecal impaction with overflow symptoms, continue bowel regimen per GI. - History of deep venous thrombosis several years ago. Further recommendations based on clinical course. Plan of care discussed with Dr. Treviño. Problems: Exam/Review of Systems Vital Signs Vitals Vital Signs Date Time Temp Pulse Resp B/P Pulse Ox O2 Delivery O2 Flow Rate FiO2 04/12/17 20:18 97.7 61 20 85/50 93 04/09/17 22:00 Room Air Intake and Output 04/12/17 04/12/17 04/13/17 15:00 23:00 07:00 Intake Total 360 ml 1360 ml 990 ml Output Total 1100 ml 500 ml Balance 360 ml 260 ml 490 ml Exam Constitutional: alert, oriented Head: normocephalic Neck: supple Respiratory: normal air movement Cardiovascular: nl pulses Gastrointestinal: non-tender, other (Rectal pain), soft Extremities: normal pulses Neurological: other (Paraplegia) Results Result Diagram: 04/13/17 0500 04/13/17 0500 Results 24 hrs Laboratory Tests Test 04/13/17 05:00 White Blood Count 7.8 # Red Blood Count 4.32 L Hemoglobin 11.2 #L Hematocrit 35.8 L Mean Corpuscular Volume 82.9 Mean Corpuscular Hemoglobin 25.9 L Mean Corpuscular Hemoglobin Concent 31.3 L Red Cell Distribution Width 15.9 H Platelet Count 335 # Mean Platelet Volume 10.2 Neutrophils % 61.2 Lymphocytes % 24.9 Monocytes % 8.5 Eosinophils % 4.7 Basophils % 0.4 Nucleated Red Blood Cells % 0.0 Neutrophils # 4.8 Lymphocytes # 1.9 Monocytes # 0.7 Eosinophils # 0.4 Basophils # 0.0 Nucleated Red Blood Cells # 0.0 Sodium Level 138 Potassium Level 4.1 Chloride Level 104 Carbon Dioxide Level 29 Anion Gap 9 # Blood Urea Nitrogen 11 Creatinine 0.56 L Glucose Level 87 # Calcium Level 8.1 L Total Bilirubin 0.2 Direct Bilirubin 0.00 Indirect Bilirubin 0.2 Aspartate Amino Transf (AST/SGOT) 18 Alanine Aminotransferase (ALT/SGPT) 42 Alkaline Phosphatase 115 Total Protein 5.9 L Albumin 3.2 L Globulin 2.70 Albumin/Globulin Ratio 1.18 Medications Medications Current Medications Sodium Chloride (NS) 1,000 ml @ 30 mls/hr Q24H IV Last administered on 14:26; Admin Dose 30 MLS/HR; Start 04/05/17 at 15:30 Acetaminophen (Tylenol Tab) 500 mg Q4H PRN PO PAIN LEVEL 1-3 OR FEVER; Start at 15:30 Acetaminophen/ Hydrocodone Bitart ([place] (5/325)) 1 tab Q4H PRN PO PAIN LEVEL 4 -6 Last administered on 04/11/17 13:21; Admin Dose 1 TAB; Start 04/05/17 at 15: 30 Morphine Sulfate (morphine) 4 mg Q4H PRN IV PAIN LEVEL 7-10 Last administered on 04/13/17 07:59; Admin Dose 4 MG; Start 04/05/17 at 19:30 Docusate Sodium 100 mg 100 mg BID PO Last administered on 04/13/17 08:00; Admin Dose 100 MG; Start 04/09/17 at 09:00 Meropenem 100 ml @ 200 mls/hr Q6 IVPB Last administered on 04/13/17 17:03; Admin Dose 200 MLS/HR; Start 04/12/17 at 18:00 Metronidazole (Flagyl 500 Mg (Pmx)) 100 ml @ 100 mls/hr Q8 IVPB Last administered on 04/13/17 13:28; Admin Dose 100 MLS/HR; Start 04/12/17 at 14:00 LIZETH LOCKHART Apr 13, 2017 19:09
[2017-04-13 20:52] VITALS: BP 111/60; RESP 16
--- NOTE | 2017-04-13 21:02 | CONS ---
Date/Time of Note Date/Time of Note DATE: 04/13/17 TIME: 20:58 Assessment/Plan Assessment/Plan Additional Assessment/Plan IMPRESSION: 1. Paraplegia. 2. Proctitis, which is the cause of his rectal pain. 3. Diarrhea, which is due to the fecal impaction with overflow syndrome. 4. Escherichia coli urinary tract infection. 5. Deep venous thrombosis. 6. Abnormal liver function tests with elevation of alkaline phosphatase, negative CT scan of the liver and biliary system. PLAN: 1. At this point, is to start the patient on Amitiza, which will help this patient for opioid-induced constipation. 2. Will send stool for occult blood. 3. Monitor LFTs periodically. 4. If the rectal pain persists, then we will proceed with colonoscopy or flexible sigmoidoscopy. Consultation Date/Type/Reason Admit Date/Time April 05, 2017 at 12:17 24 HR Interval Summary Constitutional: no complaints Exam/Review of Systems Vital Signs Vitals Vital Signs Date Time Temp Pulse Resp B/P Pulse Ox O2 Delivery O2 Flow Rate FiO2 04/13/17 20:52 98.2 65 16 111/60 91 04/09/17 22:00 Room Air Intake and Output 04/12/17 04/12/17 04/13/17 15:00 23:00 07:00 Intake Total 360 ml 1360 ml 990 ml Output Total 1100 ml 500 ml Balance 360 ml 260 ml 490 ml Exam Constitutional: alert, oriented, well developed Psych: nl mood/affect, no complaints Head: atraumatic, normocephalic Eyes: EOMI, PERRL, nl conjunctiva, nl lids, nl sclera ENMT: nl external ears & nose, nl lips & teeth, nl nasal mucosa & septum Neck: non-tender, supple Respiratory: clear to auscultation, normal air movement Cardiovascular: nl pulses, regular rate and rhythm Gastrointestinal: nl liver, spleen, non-tender, soft Musculoskeletal: nl extremities to inspection, nl gait and stance Extremities: normal pulses Neurological: [employer] REPA[employer]ER II-XII intact, nl mental status, nl speech, nl strength Skin: nl turgor, No rash or lesions Lymph: nl lymph nodes Results Result Diagram: 04/13/17 0500 04/13/17 0500 Results 24 hrs Laboratory Tests Test 04/13/17 05:00 White Blood Count 7.8 # Red Blood Count 4.32 L Hemoglobin 11.2 #L Hematocrit 35.8 L Mean Corpuscular Volume 82.9 Mean Corpuscular Hemoglobin 25.9 L Mean Corpuscular Hemoglobin Concent 31.3 L Red Cell Distribution Width 15.9 H Platelet Count 335 # Mean Platelet Volume 10.2 Neutrophils % 61.2 Lymphocytes % 24.9 Monocytes % 8.5 Eosinophils % 4.7 Basophils % 0.4 Nucleated Red Blood Cells % 0.0 Neutrophils # 4.8 Lymphocytes # 1.9 Monocytes # 0.7 Eosinophils # 0.4 Basophils # 0.0 Nucleated Red Blood Cells # 0.0 Sodium Level 138 Potassium Level 4.1 Chloride Level 104 Carbon Dioxide Level 29 Anion Gap 9 # Blood Urea Nitrogen 11 Creatinine 0.56 L Glucose Level 87 # Calcium Level 8.1 L Total Bilirubin 0.2 Direct Bilirubin 0.00 Indirect Bilirubin 0.2 Aspartate Amino Transf (AST/SGOT) 18 Alanine Aminotransferase (ALT/SGPT) 42 Alkaline Phosphatase 115 Total Protein 5.9 L Albumin 3.2 L Globulin 2.70 Albumin/Globulin Ratio 1.18 Medications Medications Current Medications Sodium Chloride (NS) 1,000 ml @ 30 mls/hr Q24H IV Last administered on 14:26; Admin Dose 30 MLS/HR; Start 04/05/17 at 15:30 Acetaminophen (Tylenol Tab) 500 mg Q4H PRN PO PAIN LEVEL 1-3 OR FEVER; Start at 15:30 Acetaminophen/ Hydrocodone Bitart ([place] (5/325)) 1 tab Q4H PRN PO PAIN LEVEL 4 -6 Last administered on 04/11/17 13:21; Admin Dose 1 TAB; Start 04/05/17 at 15: 30 Morphine Sulfate (morphine) 4 mg Q4H PRN IV PAIN LEVEL 7-10 Last administered on 04/13/17 07:59; Admin Dose 4 MG; Start 04/05/17 at 19:30 Docusate Sodium 100 mg 100 mg BID PO Last administered on 04/13/17 08:00; Admin Dose 100 MG; Start 04/09/17 at 09:00 Meropenem 100 ml @ 200 mls/hr Q6 IVPB Last administered on 04/13/17 17:03; Admin Dose 200 MLS/HR; Start 04/12/17 at 18:00 Metronidazole (Flagyl 500 Mg (Pmx)) 100 ml @ 100 mls/hr Q8 IVPB Last administered on 04/13/17t 13:28; Admin Dose 100 MLS/HR; Start 04/12/17 at 14:00 LETTY MORENO MD Apr 13, 2017 21:02
[2017-04-14] MEDS: MEROPENEM 500 MG/100 ML (PMX) 100 ML IVPB SCH ×4 (00:20→18:40)
[2017-04-14] MEDS: SOD CHLORIDE 0.9% 1,000 ML IV SCH (03:59)
[2017-04-14] MEDS: HYDROCODONE/APAP (5/325) TAB PO PRN (05:20)
[2017-04-14] MEDS: metroNIDAZOLE 500 MG/NS (PMX) 100 ML IVPB SCH ×3 (05:54→21:28)
[2017-04-14 05:57] LABS: ADD SCAN DIFF NO
[2017-04-14 06:13] LABS: BASOPHILS % 0.4 % (0.0-2.0); EOSINOPHILS # 0.3 10^3/ul (0.0-0.5); EOSINOPHILS % 3.7 % (0.0-7.0); HEMATOCRIT 35.3 % (42.0-52.0); HEMOGLOBIN 11.3 g/dl (14.0-18.0); LYMPHOCYTES % 26.7 % (15.0-51.0); MEAN CORPUSCULAR HEMOGLOBIN 26.2 pg (29.0-33.0); MEAN CORPUSCULAR VOLUME 81.7 fl (82.0-101.0); MEAN PLATELET VOLUME 10.4 fl (7.4-10.4); MONOCYTE # 0.5 10^3/ul (0.3-0.9); MONOCYTES % 6.9 % (0.0-11.0); NEUTROPHIL # 4.6 10^3/ul (1.6-7.5); PLATELET COUNT 375 10^3/UL (140-415); RED BLOOD COUNT 4.32 10^6/ul (4.70-6.10); RED CELL DISTRIBUTION WIDTH 15.4 % (11.5-14.5); WHITE BLOOD COUNT 7.4 10^3/ul (4.8-10.8)
[2017-04-14 06:23] LABS: CALCIUM 8.5 mg/dl (8.4-10.2); CREATININE 0.53 mg/dl (0.61-1.24); POTASSIUM 4.3 mmol/L (3.5-5.1)
[2017-04-14] MEDS: DOCUSATE SODIUM 100 MG CAP PO SCH ×2 (09:52→21:28)
[2017-04-14] MEDS: morphine 4 MG/ML VIAL IV PRN ×2 (12:58→21:29)
--- NOTE | 2017-04-14 19:03 | PN ---
Date/Time of Note Date/Time of Note DATE: 04/14/17 TIME: 19:01 Assessment/Plan VTE Prophylaxis VTE Prophylaxis Intervention: other Lines/Catheters IV C[facility]ter Type (from [facility]): Peripheral IV Urinary Cath still in place: No Assessment/Plan Assessment/Plan - Acute proctitis. Continue abx. Dr. Medina is is following in gastroenterology consultation - E-coli UTI , continue antibiotics. - Constipation. Continue patient on bowel regimen. - Paraplegia. - Cervical tumor resection. - Fecal impaction with overflow symptoms, continue bowel regimen per GI. - History of deep venous thrombosis several years ago. Further recommendations based on clinical course. Plan of care discussed with Dr. Treviño. Subjective 24 Hr Interval Summary Free Text/Dictation resting, afebrile, pain is well controlled with pain med.dw staff- no new issues reported. Cardiovascular: no complaints Gastrointestinal: no complaints Genitourinary: no complaints Exam/Review of Systems Vital Signs Vitals Vital Signs Date Time Temp Pulse Resp B/P Pulse Ox O2 Delivery O2 Flow Rate FiO2 04/13/17 20:52 98.2 65 16 111/60 91 Intake and Output 04/13/17 04/13/17 04/14/17 15:00 23:00 07:00 Intake Total 200 ml 1330 ml 1390 ml Output Total 1000 ml 2050 ml Balance 200 ml 330 ml -660 ml Exam Constitutional: alert, oriented, well developed Respiratory: clear to auscultation, normal air movement Cardiovascular: nl pulses, regular rate and rhythm Gastrointestinal: non-tender, soft Musculoskeletal: muscle weakness, nl extremities to inspection Extremities: normal pulses Neurological: nl mental status, nl speech, other (paraplegic) Skin: other Results Result Diagram: 04/14/17 0455 04/14/17 0455 Results 24 hrs Laboratory Tests Test 04/14/17 04:55 White Blood Count 7.4 Red Blood Count 4.32 L Hemoglobin 11.3 L Hematocrit 35.3 L Mean Corpuscular Volume 81.7 L Mean Corpuscular Hemoglobin 26.2 L Mean Corpuscular Hemoglobin Concent 32.0 Red Cell Distribution Width 15.4 H Platelet Count 375 Mean Platelet Volume 10.4 Neutrophils % 62.0 Lymphocytes % 26.7 Monocytes % 6.9 Eosinophils % 3.7 Basophils % 0.4 Nucleated Red Blood Cells % 0.0 Neutrophils # 4.6 Lymphocytes # 2.0 Monocytes # 0.5 Eosinophils # 0.3 Basophils # 0.0 Nucleated Red Blood Cells # 0.0 Sodium Level 139 Potassium Level 4.3 Chloride Level 104 Carbon Dioxide Level 31 Anion Gap 8 Blood Urea Nitrogen 12 Creatinine 0.53 L Glucose Level 82 Calcium Level 8.5 Medications Medications Current Medications Sodium Chloride (NS) 1,000 ml @ 30 mls/hr Q24H IV Last administered on 03:59; Admin Dose 30 MLS/HR; Start 04/05/17 at 15:30 Acetaminophen (Tylenol Tab) 500 mg Q4H PRN PO PAIN LEVEL 1-3 OR FEVER; Start at 15:30 Acetaminophen/ Hydrocodone Bitart ([place] (5/325)) 1 tab Q4H PRN PO PAIN LEVEL 4 -6 Last administered on 04/14/17 05:20; Admin Dose 1 TAB; Start 04/05/17 at 15: 30 Morphine Sulfate (morphine) 4 mg Q4H PRN IV PAIN LEVEL 7-10 Last administered on 04/14/17 12:58; Admin Dose 4 MG; Start 04/05/17 at 19:30 Docusate Sodium 100 mg 100 mg BID PO Last administered on 04/14/17 09:52; Admin Dose 100 MG; Start 04/09/17 at 09:00 Meropenem 100 ml @ 200 mls/hr Q6 IVPB Last administered on 04/14/17 18:40; Admin Dose 200 MLS/HR; Start 04/12/17 at 18:00 Metronidazole (Flagyl 500 Mg (Pmx)) 100 ml @ 100 mls/hr Q8 IVPB Last administered on 04/14/17 14:44; Admin Dose 100 MLS/HR; Start 04/12/17 at 14:00 CARLOS RESTREPO Apr 14, 2017 19:03
[2017-04-14 20:26] VITALS: BP 99/60; RESP 16
--- NOTE | 2017-04-14 22:38 | CONS ---
Date/Time of Note Date/Time of Note DATE: 04/14/17 TIME: 22:38 Assessment/Plan Assessment/Plan Additional Assessment/Plan Additional Assessment/Plan IMPRESSION: 1. Paraplegia. 2. Proctitis, which is the cause of his rectal pain. 3. Diarrhea, which is due to the fecal impaction with overflow syndrome. 4. Escherichia coli urinary tract infection. 5. Deep venous thrombosis. 6. Abnormal liver function tests with elevation of alkaline phosphatase, negative CT scan of the liver and biliary system. PLAN: 1. At this point, is to start the patient on Amitiza, which will help this patient for opioid-induced constipation. 2. Will send stool for occult blood. 3. Monitor LFTs periodically. 4. If the rectal pain persists, then we will proceed with colonoscopy or flexible sigmoidoscopy. Consultation Date/Type/Reason Admit Date/Time April 05, 2017 at 12:17 24 HR Interval Summary Constitutional: improved Exam/Review of Systems Vital Signs Vitals Vital Signs Date Time Temp Pulse Resp B/P Pulse Ox O2 Delivery O2 Flow Rate FiO2 04/14/17 20:26 97.9 66 16 99/60 94 Intake and Output 04/13/17 04/13/17 04/14/17 15:00 23:00 07:00 Intake Total 200 ml 1330 ml 1390 ml Output Total 1000 ml 2050 ml Balance 200 ml 330 ml -660 ml Exam Constitutional: alert, oriented, well developed Psych: nl mood/affect, no complaints Head: atraumatic, normocephalic Eyes: EOMI, PERRL, nl conjunctiva, nl lids, nl sclera ENMT: nl external ears & nose, nl lips & teeth, nl nasal mucosa & septum Neck: non-tender, supple Respiratory: clear to auscultation, normal air movement Cardiovascular: nl pulses, regular rate and rhythm Gastrointestinal: nl liver, spleen, non-tender, soft Musculoskeletal: nl extremities to inspection, nl gait and stance Extremities: normal pulses Neurological: OPERATIONS FORESTER II-XII intact, nl mental status, nl speech, nl strength Skin: nl turgor, No rash or lesions Lymph: nl lymph nodes Results Result Diagram: 04/14/17 0455 04/14/17 0455 Results 24 hrs Laboratory Tests Test 04/14/17 04:55 White Blood Count 7.4 Red Blood Count 4.32 L Hemoglobin 11.3 L Hematocrit 35.3 L Mean Corpuscular Volume 81.7 L Mean Corpuscular Hemoglobin 26.2 L Mean Corpuscular Hemoglobin Concent 32.0 Red Cell Distribution Width 15.4 H Platelet Count 375 Mean Platelet Volume 10.4 Neutrophils % 62.0 Lymphocytes % 26.7 Monocytes % 6.9 Eosinophils % 3.7 Basophils % 0.4 Nucleated Red Blood Cells % 0.0 Neutrophils # 4.6 Lymphocytes # 2.0 Monocytes # 0.5 Eosinophils # 0.3 Basophils # 0.0 Nucleated Red Blood Cells # 0.0 Sodium Level 139 Potassium Level 4.3 Chloride Level 104 Carbon Dioxide Level 31 Anion Gap 8 Blood Urea Nitrogen 12 Creatinine 0.53 L Glucose Level 82 Calcium Level 8.5 Medications Medications Current Medications Sodium Chloride (NS) 1,000 ml @ 30 mls/hr Q24H IV Last administered on 03:59; Admin Dose 30 MLS/HR; Start 04/05/17 at 15:30 Acetaminophen (Tylenol Tab) 500 mg Q4H PRN PO PAIN LEVEL 1-3 OR FEVER; Start at 15:30 Acetaminophen/ Hydrocodone Bitart ([place] (5/325)) 1 tab Q4H PRN PO PAIN LEVEL 4 -6 Last administered on 04/14/17 05:20; Admin Dose 1 TAB; Start 04/05/17 at 15: 30 Morphine Sulfate (morphine) 4 mg Q4H PRN IV PAIN LEVEL 7-10 Last administered on 04/14/17 21:29; Admin Dose 4 MG; Start 04/05/17 at 19:30 Docusate Sodium 100 mg 100 mg BID PO Last administered on 04/14/17 21:28; Admin Dose 100 MG; Start 04/09/17 at 09:00 Meropenem 100 ml @ 200 mls/hr Q6 IVPB Last administered on 04/14/17 18:40; Admin Dose 200 MLS/HR; Start 04/12/17 at 18:00 Metronidazole (Flagyl 500 Mg (Pmx)) 100 ml @ 100 mls/hr Q8 IVPB Last administered on 04/14/17 21:28; Admin Dose 100 MLS/HR; Start 04/12/17 at 14:00 LETTY MORENO MD Apr 14, 2017 22:38
[2017-04-15] MEDS: MEROPENEM 500 MG/100 ML (PMX) 100 ML IVPB SCH ×3 (00:14→11:47)
[2017-04-15 05:59] LABS: ADD SCAN DIFF NO
[2017-04-15] MEDS: metroNIDAZOLE 500 MG/NS (PMX) 100 ML IVPB SCH (06:03)
[2017-04-15 06:09] LABS: BASOPHILS % 0.6 % (0.0-2.0); EOSINOPHILS # 0.2 10^3/ul (0.0-0.5); EOSINOPHILS % 3.6 % (0.0-7.0); HEMATOCRIT 36.3 % (42.0-52.0); HEMOGLOBIN 11.5 g/dl (14.0-18.0); LYMPHOCYTES # 2.1 10^3/ul (0.8-2.9); LYMPHOCYTES % 32.4 % (15.0-51.0); MEAN CORPUSCULAR HGB CONC 31.7 g/dl (32.0-37.0); MEAN CORPUSCULAR VOLUME 81.9 fl (82.0-101.0); MEAN PLATELET VOLUME 10.3 fl (7.4-10.4); MONOCYTE # 0.5 10^3/ul (0.3-0.9); NEUTROPHIL # 3.6 10^3/ul (1.6-7.5); NEUTROPHILS % 56.1 % (39.0-77.0); PLATELET COUNT 375 10^3/UL (140-415); RED BLOOD COUNT 4.43 10^6/ul (4.70-6.10); RED CELL DISTRIBUTION WIDTH 15.5 % (11.5-14.5); WHITE BLOOD COUNT 6.5 10^3/ul (4.8-10.8)
[2017-04-15 06:27] LABS: CALCIUM 8.5 mg/dl (8.4-10.2); CREATININE 0.59 mg/dl (0.61-1.24); POTASSIUM 4.3 mmol/L (3.5-5.1)
[2017-04-15 08:06] VITALS: BP 110/65; RESP 18
[2017-04-15] MEDS: DOCUSATE SODIUM 100 MG CAP PO SCH ×2 (08:12→20:50)
[2017-04-15] MEDS: morphine 4 MG/ML VIAL IV PRN ×2 (08:12→20:50)
[2017-04-15] MEDS: SOD CHLORIDE 0.9% 1,000 ML IV SCH ×2 (12:50→17:10)
--- NOTE | 2017-04-15 17:55 | PN ---
Date/Time of Note Date/Time of Note DATE: 04/15/17 TIME: 17:54 Assessment/Plan VTE Prophylaxis VTE Prophylaxis Intervention: SCD's Lines/Catheters IV [facility] Type (from [facility] Peripheral IV Urinary Cath still in place: No Assessment/Plan Chief Complaint/Hosp Course No acute events overnight, pain is well controlled. Assessment/Plan - Acute proctitis. Continue abx. Dr. Medina is is following in gastroenterology consultation - E-coli UTI , continue antibiotics. - Constipation. Continue patient on bowel regimen. - Paraplegia. - Cervical tumor resection. - Fecal impaction with overflow symptoms, continue bowel regimen per GI. - History of deep venous thrombosis several years ago. Further recommendations based on clinical course. Plan of care discussed with Dr. Treviño. Problems: Exam/Review of Systems Vital Signs Vitals Vital Signs Date Time Temp Pulse Resp B/P Pulse Ox O2 Delivery O2 Flow Rate FiO2 04/15/17 08:06 98.7 59 18 110/65 93 Intake and Output 04/14/17 04/14/17 04/15/17 15:00 23:00 07:00 Intake Total 100 ml 1680 ml 1560 ml Output Total 900 ml 2800 ml Balance 100 ml 780 ml -1240 ml Exam Constitutional: alert, oriented Head: normocephalic Neck: supple Respiratory: normal air movement Cardiovascular: nl pulses Gastrointestinal: non-tender, other (Rectal pain), soft Extremities: normal pulses Neurological: other (Paraplegia) Results Result Diagram: 04/15/17 0428 04/15/17 0435 Results 24 hrs Laboratory Tests Test 04/15/17 04:28 04/15/17 04:35 White Blood Count 6.5 Red Blood Count 4.43 L Hemoglobin 11.5 L Hematocrit 36.3 L Mean Corpuscular Volume 81.9 L Mean Corpuscular Hemoglobin 26.0 L Mean Corpuscular Hemoglobin Concent 31.7 L Red Cell Distribution Width 15.5 H Platelet Count 375 Mean Platelet Volume 10.3 Neutrophils % 56.1 Lymphocytes % 32.4 Monocytes % 7.0 Eosinophils % 3.6 Basophils % 0.6 Nucleated Red Blood Cells % 0.0 Neutrophils # 3.6 Lymphocytes # 2.1 Monocytes # 0.5 Eosinophils # 0.2 Basophils # 0.0 Nucleated Red Blood Cells # 0.0 Sodium Level 140 Potassium Level 4.3 Chloride Level 103 Carbon Dioxide Level 31 Anion Gap 10 Blood Urea Nitrogen 12 Creatinine 0.59 L Glucose Level 92 Calcium Level 8.5 Medications Medications Current Medications Sodium Chloride (NS) 1,000 ml @ 30 mls/hr Q24H IV Last administered on 17:10; Admin Dose 30 MLS/HR; Start 04/05/17 at 15:30 Acetaminophen (Tylenol Tab) 500 mg Q4H PRN PO PAIN LEVEL 1-3 OR FEVER; Start at 15:30 Acetaminophen/ Hydrocodone Bitart ([place] (5/325)) 1 tab Q4H PRN PO PAIN LEVEL 4 -6 Last administered on 04/14/17 05:20; Admin Dose 1 TAB; Start 04/05/17 at 15: 30 Morphine Sulfate (morphine) 4 mg Q4H PRN IV PAIN LEVEL 7-10 Last administered on 04/15/17 08:12; Admin Dose 4 MG; Start 04/05/17 at 19:30 Docusate Sodium (Colace) 100 mg BID PO Last administered on 04/15/17 08:12; Admin Dose 100 MG; Start 04/09/17 at 09:00 LIZETH LOCKHART Apr 15, 2017 17:55
[2017-04-15 21:48] VITALS: BP 131/88; RESP 18
--- NOTE | 2017-04-15 22:09 | CONS ---
Date/Time of Note Date/Time of Note DATE: 04/15/17 TIME: 22:08 Assessment/Plan Assessment/Plan Additional Assessment/Plan Additional Assessment/Plan IMPRESSION: 1. Paraplegia. 2. Proctitis, which is the cause of his rectal pain. 3. Diarrhea, which is due to the fecal impaction with overflow syndrome. 4. Escherichia coli urinary tract infection. 5. Deep venous thrombosis. 6. Abnormal liver function tests with elevation of alkaline phosphatase, negative CT scan of the liver and biliary system. PLAN: 1. At this point, is to start the patient on Amitiza, which will help this patient for opioid-induced constipation. 2. Will send stool for occult blood. 3. Monitor LFTs periodically. 4. If the rectal pain persists, then we will proceed with colonoscopy or flexible sigmoidoscopy. Consultation Date/Type/Reason Admit Date/Time April 05, 2017 at 12:17 24 HR Interval Summary Free Text/Dictation no diarrhea,rectal pain better Constitutional: improved Exam/Review of Systems Vital Signs Vitals Vital Signs Date Time Temp Pulse Resp B/P Pulse Ox O2 Delivery O2 Flow Rate FiO2 04/15/17 21:48 97.8 64 18 131/88 95 Intake and Output 04/14/17 04/14/17 04/15/17 15:00 23:00 07:00 Intake Total 100 ml 1680 ml 1560 ml Output Total 900 ml 2800 ml Balance 100 ml 780 ml -1240 ml Exam Constitutional: alert, oriented, well developed Psych: nl mood/affect, no complaints Head: atraumatic, normocephalic Eyes: EOMI, PERRL, nl conjunctiva, nl lids, nl sclera ENMT: nl external ears & nose, nl lips & teeth, nl nasal mucosa & septum Neck: non-tender, supple Respiratory: clear to auscultation, normal air movement Cardiovascular: nl pulses, regular rate and rhythm Gastrointestinal: nl liver, spleen, non-tender, soft Musculoskeletal: nl extremities to inspection, nl gait and stance Extremities: normal pulses Neurological: FRESH FOOD MANAGER II-XII intact, nl mental status, nl speech, nl strength Skin: nl turgor, No rash or lesions Lymph: nl lymph nodes Results Result Diagram: 04/15/17 0428 04/15/17 0435 Results 24 hrs Laboratory Tests Test 04/15/17 04:28 04/15/17 04:35 White Blood Count 6.5 Red Blood Count 4.43 L Hemoglobin 11.5 L Hematocrit 36.3 L Mean Corpuscular Volume 81.9 L Mean Corpuscular Hemoglobin 26.0 L Mean Corpuscular Hemoglobin Concent 31.7 L Red Cell Distribution Width 15.5 H Platelet Count 375 Mean Platelet Volume 10.3 Neutrophils % 56.1 Lymphocytes % 32.4 Monocytes % 7.0 Eosinophils % 3.6 Basophils % 0.6 Nucleated Red Blood Cells % 0.0 Neutrophils # 3.6 Lymphocytes # 2.1 Monocytes # 0.5 Eosinophils # 0.2 Basophils # 0.0 Nucleated Red Blood Cells # 0.0 Sodium Level 140 Potassium Level 4.3 Chloride Level 103 Carbon Dioxide Level 31 Anion Gap 10 Blood Urea Nitrogen 12 Creatinine 0.59 L Glucose Level 92 Calcium Level 8.5 Medications Medications Current Medications Sodium Chloride (NS) 1,000 ml @ 30 mls/hr Q24H IV Last administered on 17:10; Admin Dose 30 MLS/HR; Start 04/05/17 at 15:30 Acetaminophen (Tylenol Tab) 500 mg Q4H PRN PO PAIN LEVEL 1-3 OR FEVER; Start at 15:30 Acetaminophen/ Hydrocodone Bitart ([place] (5/325)) 1 tab Q4H PRN PO PAIN LEVEL 4 -6 Last administered on 04/14/17 05:20; Admin Dose 1 TAB; Start 04/05/17 at 15: 30 Morphine Sulfate (morphine) 4 mg Q4H PRN IV PAIN LEVEL 7-10 Last administered on 04/15/17 20:50; Admin Dose 4 MG; Start 04/05/17 at 19:30 Docusate Sodium (Colace) 100 mg BID PO Last administered on 04/15/17 20:50; Admin Dose 100 MG; Start 04/09/17 at 09:00 LETTY MORENO MD Apr 15, 2017 22:09
[2017-04-16 06:11] LABS: ADD SCAN DIFF NO
[2017-04-16 06:26] LABS: BASOPHILS % 0.6 % (0.0-2.0); EOSINOPHILS # 0.2 10^3/ul (0.0-0.5); EOSINOPHILS % 3.4 % (0.0-7.0); HEMATOCRIT 37.6 % (42.0-52.0); HEMOGLOBIN 11.7 g/dl (14.0-18.0); LYMPHOCYTES # 1.8 10^3/ul (0.8-2.9); LYMPHOCYTES % 28.2 % (15.0-51.0); MEAN CORPUSCULAR HEMOGLOBIN 25.5 pg (29.0-33.0); MEAN CORPUSCULAR HGB CONC 31.1 g/dl (32.0-37.0); MEAN CORPUSCULAR VOLUME 81.9 fl (82.0-101.0); MEAN PLATELET VOLUME 10.3 fl (7.4-10.4); MONOCYTE # 0.4 10^3/ul (0.3-0.9); MONOCYTES % 6.5 % (0.0-11.0); NEUTROPHIL # 3.9 10^3/ul (1.6-7.5); PLATELET COUNT 363 10^3/UL (140-415); RED BLOOD COUNT 4.59 10^6/ul (4.70-6.10); RED CELL DISTRIBUTION WIDTH 15.6 % (11.5-14.5); WHITE BLOOD COUNT 6.5 10^3/ul (4.8-10.8)
[2017-04-16 07:21] LABS: CALCIUM 8.5 mg/dl (8.4-10.2); CREATININE 0.55 mg/dl (0.61-1.24); POTASSIUM 4.2 mmol/L (3.5-5.1)
[2017-04-16 07:43] VITALS: BP 131/80; RESP 18
[2017-04-16 08:10] VITALS: PULSE 63
[2017-04-16] MEDS: DOCUSATE SODIUM 100 MG CAP PO SCH ×2 (09:12→21:27)
[2017-04-16] MEDS: morphine 4 MG/ML VIAL IV PRN ×2 (09:19→19:46)
[2017-04-16] MEDS: SOD CHLORIDE 0.9% 1,000 ML IV SCH (11:58)
--- NOTE | 2017-04-16 12:50 | PN ---
Date/Time of Note Date/Time of Note DATE: 04/16/17 TIME: 12:50 Assessment/Plan VTE Prophylaxis VTE Prophylaxis Intervention: other Lines/Catheters IV Catheter Type (from Nrs): Peripheral IV Assessment/Plan Chief Complaint/Hosp Course - Acute proctitis. Continue abx. Dr. Medina is is following in gastroenterology consultation - E-coli UTI , continue antibiotics. - Constipation. Continue patient on bowel regimen. - Paraplegia. - Cervical tumor resection. - Fecal impaction with overflow symptoms, continue bowel regimen per GI. - History of deep venous thrombosis several years ago. Problems: Subjective 24 Hr Interval Summary Free Text/Dictation Patient complains of pain Exam/Review of Systems Vital Signs Vitals Vital Signs Date Time Temp Pulse Resp B/P Pulse Ox O2 Delivery O2 Flow Rate FiO2 04/16/17 08:10 63 04/16/17 07:43 98.2 18 131/80 99 Intake and Output 04/15/17 04/15/17 04/16/17 15:00 23:00 07:00 Intake Total 200 ml 1335 ml 760 ml Output Total 1175 ml 1500 ml Balance 200 ml 160 ml -740 ml Exam Constitutional: well developed Head: atraumatic, normocephalic Neck: supple Respiratory: clear to auscultation Cardiovascular: regular rate and rhythm Gastrointestinal: non-tender, soft Extremities: normal pulses Results Result Diagram: 04/16/1716 04/16/17 0516 Results 24 hrs Laboratory Tests Test 04/16/17 05:16 White Blood Count 6.5 Red Blood Count 4.59 L Hemoglobin 11.7 L Hematocrit 37.6 L Mean Corpuscular Volume 81.9 L Mean Corpuscular Hemoglobin 25.5 L Mean Corpuscular Hemoglobin Concent 31.1 L Red Cell Distribution Width 15.6 H Platelet Count 363 Mean Platelet Volume 10.3 Neutrophils % 61.0 Lymphocytes % 28.2 Monocytes % 6.5 Eosinophils % 3.4 Basophils % 0.6 Nucleated Red Blood Cells % 0.0 Neutrophils # 3.9 Lymphocytes # 1.8 Monocytes # 0.4 Eosinophils # 0.2 Basophils # 0.0 Nucleated Red Blood Cells # 0.0 Sodium Level 137 Potassium Level 4.2 Chloride Level 103 Carbon Dioxide Level 30 Anion Gap 8 Blood Urea Nitrogen 10 Creatinine 0.55 L Glucose Level 90 Calcium Level 8.5 Medications Medications Current Medications Sodium Chloride (NS) 1,000 ml @ 30 mls/hr Q24H IV Last administered on 17:10; Admin Dose 30 MLS/HR; Start 04/05/17 at 15:30 Acetaminophen (Tylenol Tab) 500 mg Q4H PRN PO PAIN LEVEL 1-3 OR FEVER; Start at 15:30 Acetaminophen/ Hydrocodone Bitart ([place] (5/325)) 1 tab Q4H PRN PO PAIN LEVEL 4 -6 Last administered on 04/14/17 05:20; Admin Dose 1 TAB; Start 04/05/17 at 15: 30 Morphine Sulfate (morphine) 4 mg Q4H PRN IV PAIN LEVEL 7-10 Last administered on 04/16/17 09:19; Admin Dose 4 MG; Start 04/05/17 at 19:30 Docusate Sodium (Colace) 100 mg BID PO Last administered on 04/16/17 09:12; Admin Dose 100 MG; Start 04/09/17 at 09:00 JUANIS CORRALES Apr 16, 2017 12:50
[2017-04-16 20:00] VITALS: BP 100/58; RESP 19
[2017-04-16] MEDS: HYDROCODONE/APAP (5/325) TAB PO PRN (21:28)
[2017-04-17] MEDS: SOD CHLORIDE 0.9% 1,000 ML IV SCH (02:40)
[2017-04-17 08:24] VITALS: BP 127/76; RESP 16
[2017-04-17] MEDS: DOCUSATE SODIUM 100 MG CAP PO SCH ×2 (08:58→20:22)
--- NOTE | 2017-04-17 11:59 | PN ---
Date/Time of Note Date/Time of Note DATE: 04/17/17 TIME: 11:59 Assessment/Plan VTE Prophylaxis VTE Prophylaxis Intervention: other Lines/Catheters IV Catheter Type (from [facility]rs[facility]): Peripheral IV Assessment/Plan Chief Complaint/Hosp Course - Acute proctitis. Continue abx. Dr. Medina is is following in gastroenterology consultation - E-coli UTI , continue antibiotics. - Constipation. Continue patient on bowel regimen. - Paraplegia. - Cervical tumor resection. - Fecal impaction with overflow symptoms, continue bowel regimen per GI. - History of deep venous thrombosis several years ago. Problems: Subjective 24 Hr Interval Summary Free Text/Dictation Patient still have pain in rectum Exam/Review of Systems Vital Signs Vitals Vital Signs Date Time Temp Pulse Resp B/P Pulse Ox O2 Delivery O2 Flow Rate FiO2 04/17/17 08:24 98.1 61 16 127/76 95 Intake and Output 04/16/17 04/16/17 04/17/17 15:00 23:00 07:00 Intake Total 1316 ml 310 ml Output Total 1100 ml Balance 216 ml 310 ml Exam Constitutional: well developed Head: atraumatic, normocephalic Neck: supple Respiratory: clear to auscultation Cardiovascular: regular rate and rhythm Gastrointestinal: non-tender, soft Extremities: normal pulses Results Result Diagram: 04/16/1751504/16/17515 Medications Medications Current Medications Sodium Chloride (NS) 1,000 ml @ 30 mls/hr Q24H IV Last administered on 02:40; Admin Dose 30 MLS/HR; Start 04/05/17 at 15:30 Acetaminophen (Tylenol Tab) 500 mg Q4H PRN PO PAIN LEVEL 1-3 OR FEVER; Start at 15:30 Acetaminophen/ Hydrocodone Bitart ([place] (5/325)) 1 tab Q4H PRN PO PAIN LEVEL 4 -6 Last administered on 04/16/17 21:28; Admin Dose 1 TAB; Start 04/05/17 at 15: 30 Morphine Sulfate (morphine) 4 mg Q4H PRN IV PAIN LEVEL 7-10 Last administered on 04/16/17 19:46; Admin Dose 4 MG; Start 04/05/17 at 19:30 Docusate Sodium (Colace) 100 mg BID PO Last administered on 04/17/17 08:58; Admin Dose 100 MG; Start 04/09/17 at 09:00 JUANIS CORRALES Apr 17, 2017 11:59
[2017-04-17] MEDS ORDERED: PEG/ELECTROLYTES 4L BTL PO ONE (16:30)
--- NOTE | 2017-04-17 19:25 | CONS ---
Date/Time of Note Date/Time of Note DATE: 04/17/17 TIME: 19:24 Assessment/Plan Assessment/Plan Additional Assessment/Plan IMPRESSION: 1. Paraplegia. 2. Proctitis, which is the cause of his rectal pain. 3. Diarrhea, which is due to the fecal impaction with overflow syndrome. 4. Escherichia coli urinary tract infection. 5. Deep venous thrombosis. 6. Abnormal liver function tests with elevation of alkaline phosphatase, negative CT scan of the liver and biliary system. PLAN: 1. At this point, is to start the patient on Amitiza, which will help this patient for opioid-induced constipation. 2. Will send stool for occult blood. 3. Monitor LFTs periodically. 4.colonoscopy tomorrow Consultation Date/Type/Reason Admit Date/Time April 05, 2017 at 12:17 24 HR Interval Summary Free Text/Dictation c/o rectal pain and constipation Exam/Review of Systems Vital Signs Vitals Vital Signs Date Time Temp Pulse Resp B/P Pulse Ox O2 Delivery O2 Flow Rate FiO2 04/17/17 08:24 98.1 61 16 127/76 95 Intake and Output 04/16/17 04/16/17 04/17/17 15:00 23:00 07:00 Intake Total 1316 ml 310 ml Output Total 1100 ml Balance 216 ml 310 ml Exam Constitutional: alert, oriented, well developed Psych: nl mood/affect, no complaints Head: atraumatic, normocephalic Eyes: EOMI, PERRL, nl conjunctiva, nl lids, nl sclera ENMT: nl external ears & nose, nl lips & teeth, nl nasal mucosa & septum Neck: non-tender, supple Respiratory: clear to auscultation, normal air movement Cardiovascular: nl pulses, regular rate and rhythm Gastrointestinal: nl liver, spleen, non-tender, soft Musculoskeletal: nl extremities to inspection, nl gait and stance Extremities: normal pulses Neurological: RATER ASSOCIATE II-XII intact, nl mental status, nl speech, nl strength Skin: nl turgor, No rash or lesions Lymph: nl lymph nodes Results Result Diagram: 04/16/17 0516 04/16/17515 Medications Medications Current Medications Sodium Chloride (NS) 1,000 ml @ 30 mls/hr Q24H IV Last administered on t 02:40; Admin Dose 30 MLS/HR; Start 04/05/17 at 15:30 Acetaminophen (Tylenol Tab) 500 mg Q4H PRN PO PAIN LEVEL 1-3 OR FEVER; Start at 15:30 Acetaminophen/ Hydrocodone Bitart ([place] (5/325)) 1 tab Q4H PRN PO PAIN LEVEL 4 -6 Last administered on 04/16/17 21:28; Admin Dose 1 TAB; Start 04/05/17 at 15: 30 Morphine Sulfate (morphine) 4 mg Q4H PRN IV PAIN LEVEL 7-10 Last administered on 04/16/17 19:46; Admin Dose 4 MG; Start 04/05/17 at 19:30 Docusate Sodium (Colace) 100 mg BID PO Last administered on 04/17/17 08:58; Admin Dose 100 MG; Start 04/09/17 at 09:00 LETTY MORENO MD Apr 17, 2017 19:25
[2017-04-17 19:30] VITALS: BP 148/77; RESP 20
[2017-04-17] MEDS: morphine 4 MG/ML VIAL IV PRN (23:17)
[2017-04-18] VITALS (10 sets, daily range): BP systolic 107–150; BP diastolic 58–81; PULSE 54–72; RESP 13–18
[2017-04-18] MEDS: DOCUSATE SODIUM 100 MG CAP PO SCH ×2 (09:00→21:07)
[2017-04-18] MEDS ORDERED: LIDOCAINE 2% (SDV) 5 ML INJ ONE (12:32)
[2017-04-18] MEDS ORDERED: PROPOFOL 40 ML ONE (12:32)
[2017-04-18] MEDS: SOD CHLORIDE 0.9% 1,000 ML IV SCH (15:00)
--- NOTE | 2017-04-18 17:26 | PN ---
Date/Time of Note Date/Time of Note DATE: 04/18/17 TIME: 17:23 Assessment/Plan VTE Prophylaxis VTE Prophylaxis Intervention: SCD's Lines/Catheters [facility] [place] Urinary Cath still in place: No Assessment/Plan Chief Complaint/Hosp Course Patient is status post colonoscopy today, lethargic but easily arousable, pain is well controlled. Assessment/Plan - Opioid induced constipation, started on amitiza, continue to follow-up gastroenterology consultation. - Acute proctitis. Status post colonoscopy. Dr. Medina is is following in gastroenterology consultation - Status post UTI. - Paraplegia. - Cervical tumor resection. - Fecal impaction with overflow symptoms, continue bowel regimen per GI. - History of deep venous thrombosis several years ago. Further recommendations based on clinical course. Plan of care discussed with Dr. Treviño. Problems: Exam/Review of Systems Vital Signs Vitals Vital Signs Date Time Temp Pulse Resp B/P Pulse Ox O2 Delivery O2 Flow Rate FiO2 04/18/17 13:32 60 13 149/75 94 Room Air 04/18/17 13:07 97.0 Intake and Output 04/17/17 04/17/17 04/18/17 15:00 23:00 07:00 Intake Total 420 ml 920 ml 3720 ml Output Total 1120 ml 1950 ml 850 ml Balance -700 ml -1030 ml 2870 ml Exam Constitutional: alert, oriented Head: normocephalic Neck: supple Respiratory: normal air movement Cardiovascular: nl pulses Gastrointestinal: non-tender, other (Rectal pain), soft Extremities: normal pulses Neurological: other (Paraplegia) Results Result Diagram: 04/16/17 0516 04/16/17 05 Medications Medications Current Medications Sodium Chloride (NS) 1,000 ml @ 30 mls/hr Q24H IV Last administered on 15:00; Admin Dose 30 MLS/HR; Start 04/05/17 at 15:30 Acetaminophen (Tylenol Tab) 500 mg Q4H PRN PO PAIN LEVEL 1-3 OR FEVER; Start at 15:30 Acetaminophen/ Hydrocodone Bitart ([place] (5/325)) 1 tab Q4H PRN PO PAIN LEVEL 4 -6 Last administered on 04/16/17 21:28; Admin Dose 1 TAB; Start 04/05/17 at 15: 30 Morphine Sulfate (morphine) 4 mg Q4H PRN IV PAIN LEVEL 7-10 Last administered on 04/17/17 23:17; Admin Dose 4 MG; Start 04/05/17 at 19:30 Docusate Sodium (Colace) 100 mg BID PO Last administered on 04/18/17 09:00; Admin Dose 100 MG; Start 04/09/17 at 09:00 Lubiprostone (Amitiza) 24 mcg BID PO ; Start 04/18/17 at 21:00 LIZETH LOCKHART Apr 18, 2017 17:25
[2017-04-18] MEDS: LUBIPROSTONE 24 MCG CAP PO SCH (21:07)
--- NOTE | 2017-04-18 21:38 | GILP ---
DATE OF PROCEDURE: 04/18/2017 PROCEDURE PERFORMED: Colonoscopy with biopsy. INDICATION: A 71-year-old male undergoing this procedure for rectal pain and also for severe consti pation. CAT scan showed proctitis. The purpose is to evaluate the colon and find out the cause of his symptoms. INFORMED CONSENT: The risk of the procedure, related complications, anesthetic risks and alte rnatives were discussed and informed consent was obtained. DESCRIPTION OF PROCEDURE: The patient was brought to the GI lab, placed in left recumbent position. There was soiling of the perineal area. Scope was passed with much ease into the rectum. The pat ient had some solid stool which was pushed to the side, and advanced all the way up to the hepatic f lexure. Throughout the procedure, there was solid to semi-liquid stool precluding the visibility by almost 50% to 60%. The scope was removed with good patient tolerance. IMPRESSION: Extremity the poor prep. No gross lesion identified. PLAN: The patient definitely has narcotic-induced constipation, and also is bedridden, so he should be placed on Amitiza for opioid-induced constipation. If the pain is persistent, sitz bath.. . Dictated By: LETTY FLORES/JASMIN Conf#: [id number] DID#: [id number] CC: CHARISMA HALEY MD;*EndCC*
[2017-04-19 05:44] LABS: ADD SCAN DIFF NO
[2017-04-19 05:55] LABS: BASOPHIL # 0.1 10^3/ul (0.0-0.1); BASOPHILS % 0.7 % (0.0-2.0); EOSINOPHILS # 0.3 10^3/ul (0.0-0.5); EOSINOPHILS % 3.8 % (0.0-7.0); HEMOGLOBIN 12.7 g/dl (14.0-18.0); LYMPHOCYTES # 1.8 10^3/ul (0.8-2.9); LYMPHOCYTES % 23.2 % (15.0-51.0); MEAN CORPUSCULAR HEMOGLOBIN 25.9 pg (29.0-33.0); MEAN CORPUSCULAR HGB CONC 31.8 g/dl (32.0-37.0); MEAN CORPUSCULAR VOLUME 81.5 fl (82.0-101.0); MEAN PLATELET VOLUME 10.2 fl (7.4-10.4); MONOCYTE # 0.5 10^3/ul (0.3-0.9); MONOCYTES % 6.8 % (0.0-11.0); NEUTROPHIL # 4.9 10^3/ul (1.6-7.5); NEUTROPHILS % 65.2 % (39.0-77.0); PLATELET COUNT 348 10^3/UL (140-415); RED BLOOD COUNT 4.91 10^6/ul (4.70-6.10); RED CELL DISTRIBUTION WIDTH 15.2 % (11.5-14.5); WHITE BLOOD COUNT 7.6 10^3/ul (4.8-10.8)
[2017-04-19 06:44] LABS: CALCIUM 9.3 mg/dl (8.4-10.2); CREATININE 0.5 mg/dl (0.61-1.24); POTASSIUM 4.6 mmol/L (3.5-5.1)
[2017-04-19 08:21] VITALS: BP 127/71; RESP 18
[2017-04-19] MEDS: LUBIPROSTONE 24 MCG CAP PO SCH ×2 (09:01→20:08)
[2017-04-19] MEDS: DOCUSATE SODIUM 100 MG CAP PO SCH ×2 (09:01→20:08)
[2017-04-19] MEDS: HYDROCODONE/APAP (5/325) TAB PO PRN ×3 (09:01→23:02)
--- NOTE | 2017-04-19 12:04 | PN ---
Date/Time of Note Date/Time of Note DATE: 04/19/17 TIME: 12:02 Assessment/Plan VTE Prophylaxis VTE Prophylaxis Intervention: SCD's Lines/Catheters IV Catheter Type (from [facility]): Peripheral IV Urinary Cath still in place: No Assessment/Plan Chief Complaint/Hosp Course Patient states that his pain is 4 out of 10, denies any nausea vomiting. Assessment/Plan - Opioid induced constipation, started on amitiza, continue to follow-up gastroenterology consultation. - Acute proctitis. Status post colonoscopy. Dr. Medina is is following in gastroenterology consultation - Status post UTI. - Paraplegia. - Cervical tumor resection. - Fecal impaction with overflow symptoms, continue bowel regimen per GI. - History of deep venous thrombosis several years ago. Further recommendations based on clinical course. Plan of care discussed with Dr. Treviño. Problems: Subjective 24 Hr Interval Summary Free Text/Dictation Constitutional: alert, oriented Head: normocephalic Neck: supple Respiratory: normal air movement Cardiovascular: nl pulses Gastrointestinal: non-tender, other (Rectal pain), soft Extremities: normal pulses Neurological: other (Paraplegia) Exam/Review of Systems Vital Signs Vitals Vital Signs Date Time Temp Pulse Resp B/P Pulse Ox O2 Delivery O2 Flow Rate FiO2 04/19/17 08:21 98.1 57 18 127/71 96 04/18/17 13:32 Room Air Intake and Output 04/18/17 04/18/17 04/19/17 15:00 23:00 07:00 Intake Total 780 ml Output Total 1400 ml 1950 ml Balance -1400 ml -1170 ml Exam Constitutional: alert, oriented Head: normocephalic Neck: supple Respiratory: normal air movement Cardiovascular: nl pulses Gastrointestinal: non-tender, other (Rectal pain), soft Extremities: normal pulses Neurological: other (Paraplegia) Results Result Diagram: 04/19/17 0520 04/19/17 0520 Results 24 hrs Laboratory Tests Test 04/19/17 05:20 White Blood Count 7.6 Red Blood Count 4.91 Hemoglobin 12.7 L Hematocrit 40.0 L Mean Corpuscular Volume 81.5 L Mean Corpuscular Hemoglobin 25.9 L Mean Corpuscular Hemoglobin Concent 31.8 L Red Cell Distribution Width 15.2 H Platelet Count 348 Mean Platelet Volume 10.2 Neutrophils % 65.2 Lymphocytes % 23.2 Monocytes % 6.8 Eosinophils % 3.8 Basophils % 0.7 Nucleated Red Blood Cells % 0.0 Neutrophils # 4.9 Lymphocytes # 1.8 Monocytes # 0.5 Eosinophils # 0.3 Basophils # 0.1 Nucleated Red Blood Cells # 0.0 Sodium Level 139 Potassium Level 4.6 Chloride Level 102 Carbon Dioxide Level 28 Anion Gap 14 Blood Urea Nitrogen 8 Creatinine 0.50 L Glucose Level 94 Calcium Level 9.3 Medications Medications Current Medications Sodium Chloride (NS) 1,000 ml @ 30 mls/hr Q24H IV Last administered on 15:00; Admin Dose 30 MLS/HR; Start 04/05/17 at 15:30 Acetaminophen (Tylenol Tab) 500 mg Q4H PRN PO PAIN LEVEL 1-3 OR FEVER; Start at 15:30 Acetaminophen/ Hydrocodone Bitart ([place] (5/325)) 1 tab Q4H PRN PO PAIN LEVEL 4 -6 Last administered on 04/19/17 09:01; Admin Dose 1 TAB; Start 04/05/17 at 15: 30 Morphine Sulfate (morphine) 4 mg Q4H PRN IV PAIN LEVEL 7-10 Last administered on 04/17/17 23:17; Admin Dose 4 MG; Start 04/05/17 at 19:30 Docusate Sodium (Colace) 100 mg BID PO Last administered on 04/19/17 09:01; Admin Dose 100 MG; Start 04/09/17 at 09:00 Lubiprostone (Amitiza) 24 mcg BID PO Last administered on 04/19/17 09:01; Admin Dose 24 MCG; Start 04/18/17 at 21:00 LIZETH LOCKHART Apr 19, 2017 12:04
[2017-04-19] MEDS: SOD CHLORIDE 0.9% 1,000 ML IV SCH ×2 (12:50→23:02)
--- NOTE | 2017-04-19 19:00 | CONS ---
Date/Time of Note Date/Time of Note DATE: 04/19/17 TIME: 18:59 Assessment/Plan Assessment/Plan Additional Assessment/Plan IMPRESSION: 1. Paraplegia. 2. Proctitis, which is the cause of his rectal pain. 3. Diarrhea, which is due to the fecal impaction with overflow syndrome. 4. Escherichia coli urinary tract infection. 5. Deep venous thrombosis. 6. Abnormal liver function tests with elevation of alkaline phosphatase, negative CT scan of the liver and biliary system. PLAN: 1. At this point, is to start the patient on Amitiza, which will help this patient for opioid-induced constipation. 2. Will send stool for occult blood. 3. Monitor LFTs periodically. 4 amities on regular basis Consultation Date/Type/Reason Admit Date/Time April 05, 2017 at 12:17 24 HR Interval Summary Free Text/Dictation Complaints of back pain Exam/Review of Systems Vital Signs Vitals Vital Signs Date Time Temp Pulse Resp B/P Pulse Ox O2 Delivery O2 Flow Rate FiO2 04/19/17 08:21 98.1 57 18 127/71 96 04/18/17 13:32 Room Air Intake and Output 04/18/17 04/18/17 04/19/17 15:00 23:00 07:00 Intake Total 315 ml 780 ml Output Total 1400 ml 1950 ml Balance -1085 ml -1170 ml Exam Constitutional: alert, oriented, well developed Psych: nl mood/affect, no complaints Head: atraumatic, normocephalic Eyes: EOMI, PERRL, nl conjunctiva, nl lids, nl sclera ENMT: nl external ears & nose, nl lips & teeth, nl nasal mucosa & septum Neck: non-tender, supple Respiratory: clear to auscultation, normal air movement Cardiovascular: nl pulses, regular rate and rhythm Gastrointestinal: nl liver, spleen, non-tender, soft Musculoskeletal: nl extremities to inspection, nl gait and stance Extremities: normal pulses Neurological: [employer] WET PROCESS II-XII intact, nl mental status, nl speech, nl strength Skin: nl turgor, No rash or lesions Lymph: nl lymph nodes Results Result Diagram: 04/19/17 0520 04/19/17 0520 Results 24 hrs Laboratory Tests Test 04/19/17 05:20 White Blood Count 7.6 Red Blood Count 4.91 Hemoglobin 12.7 L Hematocrit 40.0 L Mean Corpuscular Volume 81.5 L Mean Corpuscular Hemoglobin 25.9 L Mean Corpuscular Hemoglobin Concent 31.8 L Red Cell Distribution Width 15.2 H Platelet Count 348 Mean Platelet Volume 10.2 Neutrophils % 65.2 Lymphocytes % 23.2 Monocytes % 6.8 Eosinophils % 3.8 Basophils % 0.7 Nucleated Red Blood Cells % 0.0 Neutrophils # 4.9 Lymphocytes # 1.8 Monocytes # 0.5 Eosinophils # 0.3 Basophils # 0.1 Nucleated Red Blood Cells # 0.0 Sodium Level 139 Potassium Level 4.6 Chloride Level 102 Carbon Dioxide Level 28 Anion Gap 14 Blood Urea Nitrogen 8 Creatinine 0.50 L Glucose Level 94 Calcium Level 9.3 Medications Medications Current Medications Sodium Chloride (NS) 1,000 ml @ 30 mls/hr Q24H IV Last administered on 15:00; Admin Dose 30 MLS/HR; Start 04/05/17 at 15:30 Acetaminophen (Tylenol Tab) 500 mg Q4H PRN PO PAIN LEVEL 1-3 OR FEVER; Start at 15:30 Acetaminophen/ Hydrocodone Bitart ([place] (5/325)) 1 tab Q4H PRN PO PAIN LEVEL 4 -6 Last administered on 04/19/17 18:05; Admin Dose 1 TAB; Start 04/05/17 at 15: 30 Morphine Sulfate (morphine) 4 mg Q4H PRN IV PAIN LEVEL 7-10 Last administered on 04/17/17 23:17; Admin Dose 4 MG; Start 04/05/17 at 19:30 Docusate Sodium (Colace) 100 mg BID PO Last administered on 04/19/17 09:01; Admin Dose 100 MG; Start 04/09/17 at 09:00 Lubiprostone (Amitiza) 24 mcg BID PO Last administered on 04/19/17 09:01; Admin Dose 24 MCG; Start 04/18/17 at 21:00 LETTY MORENO MD Apr 19, 2017 19:00
[2017-04-19 20:10] VITALS: BP 123/66; RESP 18
[2017-04-20] MEDS: HYDROCODONE/APAP (5/325) TAB PO PRN ×4 (03:12→20:26)
[2017-04-20 06:51] LABS: ADD SCAN DIFF NO
[2017-04-20 06:59] LABS: BASOPHIL # 0.1 10^3/ul (0.0-0.1); BASOPHILS % 0.9 % (0.0-2.0); EOSINOPHILS # 0.3 10^3/ul (0.0-0.5); EOSINOPHILS % 4.3 % (0.0-7.0); HEMATOCRIT 37.6 % (42.0-52.0); HEMOGLOBIN 11.9 g/dl (14.0-18.0); LYMPHOCYTES # 2.5 10^3/ul (0.8-2.9); LYMPHOCYTES % 37.5 % (15.0-51.0); MEAN CORPUSCULAR HEMOGLOBIN 25.8 pg (29.0-33.0); MEAN CORPUSCULAR HGB CONC 31.6 g/dl (32.0-37.0); MEAN CORPUSCULAR VOLUME 81.4 fl (82.0-101.0); MEAN PLATELET VOLUME 10.5 fl (7.4-10.4); MONOCYTE # 0.7 10^3/ul (0.3-0.9); MONOCYTES % 9.9 % (0.0-11.0); NEUTROPHIL # 3.1 10^3/ul (1.6-7.5); NEUTROPHILS % 47.2 % (39.0-77.0); PLATELET COUNT 345 10^3/UL (140-415); RED BLOOD COUNT 4.62 10^6/ul (4.70-6.10); RED CELL DISTRIBUTION WIDTH 15.1 % (11.5-14.5); WHITE BLOOD COUNT 6.6 10^3/ul (4.8-10.8)
[2017-04-20 07:47] LABS: CALCIUM 8.5 mg/dl (8.4-10.2); CREATININE 0.63 mg/dl (0.61-1.24); POTASSIUM 4.4 mmol/L (3.5-5.1)
[2017-04-20] MEDS: DOCUSATE SODIUM 100 MG CAP PO SCH ×2 (08:50→20:26)
[2017-04-20] MEDS: LUBIPROSTONE 24 MCG CAP PO SCH ×2 (08:50→20:26)
--- NOTE | 2017-04-20 17:27 | PN ---
Date/Time of Note Date/Time of Note DATE: 04/20/17 TIME: 17:25 Assessment/Plan VTE Prophylaxis VTE Prophylaxis Intervention: SCD's Lines/Catheters [facility]from [facility] Peripheral IV Urinary Cath still in place: No Assessment/Plan Chief Complaint/Hosp Course Patient stated that he is pain is mild to moderate, continue current pain management. Assessment/Plan - Opioid induced constipation, started on amitiza, continue to follow-up gastroenterology consultation. - Acute proctitis. Status post colonoscopy. Dr. Medina is is following in gastroenterology consultation - Status post UTI. - Paraplegia. - Cervical tumor resection. - Fecal impaction with overflow symptoms, continue bowel regimen per GI. - History of deep venous thrombosis several years ago. Further recommendations based on clinical course. Plan of care discussed with Dr. Treviño. Problems: Exam/Review of Systems Vital Signs Vitals Vital Signs Date Time Temp Pulse Resp B/P Pulse Ox O2 Delivery O2 Flow Rate FiO2 04/19/17 20:10 98.2 56 18 123/66 94 04/18/17 13:32 Room Air Intake and Output 04/19/17 04/19/17 04/20/17 15:00 23:00 07:00 Intake Total 1710 ml 420 ml Output Total 1300 ml 900 ml Balance 410 ml -480 ml Exam Constitutional: alert, oriented Head: normocephalic Neck: supple Respiratory: normal air movement Cardiovascular: nl pulses Gastrointestinal: non-tender, other (Rectal pain), soft Extremities: normal pulses Neurological: other (Paraplegia) Results Result Diagram: 04/20/17 0610 04/20/17 0610 Results 24 hrs Laboratory Tests Test 04/20/17 06:10 White Blood Count 6.6 Red Blood Count 4.62 L Hemoglobin 11.9 L Hematocrit 37.6 L Mean Corpuscular Volume 81.4 L Mean Corpuscular Hemoglobin 25.8 L Mean Corpuscular Hemoglobin Concent 31.6 L Red Cell Distribution Width 15.1 H Platelet Count 345 Mean Platelet Volume 10.5 H Neutrophils % 47.2 Lymphocytes % 37.5 Monocytes % 9.9 Eosinophils % 4.3 Basophils % 0.9 Nucleated Red Blood Cells % 0.0 Neutrophils # 3.1 Lymphocytes # 2.5 Monocytes # 0.7 Eosinophils # 0.3 Basophils # 0.1 Nucleated Red Blood Cells # 0.0 Sodium Level 140 Potassium Level 4.4 Chloride Level 104 Carbon Dioxide Level 30 Anion Gap 10 Blood Urea Nitrogen 9 Creatinine 0.63 Glucose Level 83 Calcium Level 8.5 Medications Medications Current Medications Sodium Chloride (NS) 1,000 ml @ 30 mls/hr Q24H IV Last administered on 23:02; Admin Dose 30 MLS/HR; Start 04/05/17 at 15:30 Acetaminophen (Tylenol Tab) 500 mg Q4H PRN PO PAIN LEVEL 1-3 OR FEVER; Start at 15:30 Acetaminophen/ Hydrocodone Bitart ([place] (5/325)) 1 tab Q4H PRN PO PAIN LEVEL 4 -6 Last administered on 04/20/17 16:17; Admin Dose 1 TAB; Start 04/05/17 at 15: 30 Morphine Sulfate (morphine) 4 mg Q4H PRN IV PAIN LEVEL 7-10 Last administered on 04/17/17 23:17; Admin Dose 4 MG; Start 04/05/17 at 19:30 Docusate Sodium (Colace) 100 mg BID PO Last administered on 04/20/17 08:50; Admin Dose 100 MG; Start 04/09/17 at 09:00 Lubiprostone (Amitiza) 24 mcg BID PO Last administered on 04/20/17 08:50; Admin Dose 24 MCG; Start 04/18/17 at 21:00 LIZETH LOCKHART Apr 20, 2017 17:27
[2017-04-20 20:19] VITALS: BP 106/59; RESP 19
[2017-04-21] MEDS: HYDROCODONE/APAP (5/325) TAB PO PRN ×2 (00:39→21:16)
--- NOTE | 2017-04-21 03:09 | CONS ---
DATE OF ADMISSION: 04/05/2017 DATE OF CONSULTATION: 04/20/2017 GASTROENTEROLOGY CONSULTATION FOLLOWUP TIME OF CONSULTATION: Around 2:30 p.m. HISTORY OF PRESENT ILLNESS: The patient is a 71-year-old male, complaints of back pain, now has a g ood bowel movement. No diarrhea, no nausea, no vomiting. OBJECTIVE: VITAL SIGNS: Stable. ABDOMEN: Benign. LUNGS: Clear. CENTRAL NERVOUS SYSTEM: Alert, awake. Moving all the upper extremities. IMPRESSION: 1. Rectal pain, better. 2. Severe constipation secondary to opioid-induced constipation and bedridden state. 3. Urinary tract infection. 4. Paraplegia. 5. Cervical tumor resection. PLAN: At this point, continue Amitiza and pain management. Dictated By: LETTY MORENO MD PJ/NTS Conf#: [id number] DID#: [id number] CC: CHARISMA HALEY MD; LETTY MORENO MD;*EndCC*
[2017-04-21] MEDS: SOD CHLORIDE 0.9% 1,000 ML IV SCH (05:20)
[2017-04-21 07:35] VITALS: BP 113/63; RESP 18
[2017-04-21] MEDS: DOCUSATE SODIUM 100 MG CAP PO SCH ×2 (09:39→21:15)
[2017-04-21] MEDS: LUBIPROSTONE 24 MCG CAP PO SCH ×2 (09:39→21:15)
--- NOTE | 2017-04-21 17:14 | PN ---
Date/Time of Note Date/Time of Note DATE: 04/21/17 TIME: 17:12 Assessment/Plan VTE Prophylaxis VTE Prophylaxis Intervention: other Lines/Catheters IV Catheter Type (from Nrs): Peripheral IV Urinary Cath still in place: No Assessment/Plan Assessment/Plan Opioid induced constipation, started on amitiza, continue to follow-up gastroenterology consultation. - Acute proctitis. Status post colonoscopy. - per Dr. Medina in gastroenterology consultation - Status post UTI. - Paraplegia. - Cervical tumor resection. - Fecal impaction with overflow symptoms, continue bowel regimen per GI. - History of deep venous thrombosis several years ago. Further recommendations based on clinical course. Plan of care discussed with Dr. Treviño. Subjective 24 Hr Interval Summary Respiratory: no complaints Cardiovascular: no complaints Gastrointestinal: pain (rectal) Genitourinary: no complaints Musculoskeletal: no complaints Exam/Review of Systems Vital Signs Vitals Vital Signs Date Time Temp Pulse Resp B/P Pulse Ox O2 Delivery O2 Flow Rate FiO2 04/21/17 07:35 97.8 72 18 113/63 94 04/18/17 13:32 Room Air Intake and Output 04/20/17 04/20/17 04/21/17 14:59 22:59 06:59 Intake Total 1840 ml 810 ml Output Total 1200 ml 1400 ml Balance 640 ml -590 ml Exam Constitutional: alert Respiratory: clear to auscultation, normal air movement Cardiovascular: nl pulses, regular rate and rhythm Gastrointestinal: non-tender, soft Musculoskeletal: muscle weakness Neurological: nl speech, other (paraplegic) Results Result Diagram: 04/20/17 0610 04/20/17 0610 Medications Medications Current Medications Sodium Chloride (NS) 1,000 ml @ 30 mls/hr Q24H IV Last administered on 05:20; Admin Dose 30 MLS/HR; Start 04/05/17 at 15:30 Acetaminophen (Tylenol Tab) 500 mg Q4H PRN PO PAIN LEVEL 1-3 OR FEVER; Start at 15:30 Acetaminophen/ Hydrocodone Bitart ([place] (5/325)) 1 tab Q4H PRN PO PAIN LEVEL 4 -6 Last administered on 04/21/17 00:39; Admin Dose 1 TAB; Start 04/05/17 at 15: 30 Morphine Sulfate (morphine) 4 mg Q4H PRN IV PAIN LEVEL 7-10 Last administered on 04/17/17 23:17; Admin Dose 4 MG; Start 04/05/17 at 19:30 Docusate Sodium (Colace) 100 mg BID PO Last administered on 04/21/17 09:39; Admin Dose 100 MG; Start 04/09/17 at 09:00 Lubiprostone (Amitiza) 24 mcg BID PO Last administered on 04/21/17 09:39; Admin Dose 24 MCG; Start 04/18/17 at 21:00 CARLOS RESTREPO Apr 21, 2017 17:14
[2017-04-21 20:15] VITALS: BP 108/61; RESP 16
[2017-04-22 05:50] LABS: ADD SCAN DIFF NO
[2017-04-22 06:24] LABS: BASOPHIL # 0.1 10^3/ul (0.0-0.1); BASOPHILS % 0.9 % (0.0-2.0); EOSINOPHILS # 0.2 10^3/ul (0.0-0.5); EOSINOPHILS % 3.3 % (0.0-7.0); HEMATOCRIT 36.4 % (42.0-52.0); HEMOGLOBIN 11.9 g/dl (14.0-18.0); LYMPHOCYTES # 2.5 10^3/ul (0.8-2.9); LYMPHOCYTES % 37.1 % (15.0-51.0); MEAN CORPUSCULAR HEMOGLOBIN 26.5 pg (29.0-33.0); MEAN CORPUSCULAR HGB CONC 32.7 g/dl (32.0-37.0); MEAN CORPUSCULAR VOLUME 81.1 fl (82.0-101.0); MEAN PLATELET VOLUME 10.9 fl (7.4-10.4); MONOCYTE # 0.7 10^3/ul (0.3-0.9); MONOCYTES % 10.7 % (0.0-11.0); NEUTROPHIL # 3.2 10^3/ul (1.6-7.5); NEUTROPHILS % 47.6 % (39.0-77.0); PLATELET COUNT 312 10^3/UL (140-415); RED BLOOD COUNT 4.49 10^6/ul (4.70-6.10); RED CELL DISTRIBUTION WIDTH 15.1 % (11.5-14.5); WHITE BLOOD COUNT 6.7 10^3/ul (4.8-10.8)
[2017-04-22 07:03] LABS: CALCIUM 8.4 mg/dl (8.4-10.2); CREATININE 0.7 mg/dl (0.61-1.24); POTASSIUM 4.5 mmol/L (3.5-5.1)
[2017-04-22 07:50] VITALS: BP 127/87; RESP 16
[2017-04-22] MEDS: DOCUSATE SODIUM 100 MG CAP PO SCH ×2 (08:40→21:48)
[2017-04-22] MEDS: LUBIPROSTONE 24 MCG CAP PO SCH ×2 (08:40→21:48)
[2017-04-22] MEDS: SOD CHLORIDE 0.9% 1,000 ML IV SCH (11:53)
--- NOTE | 2017-04-22 16:20 | PN ---
Date/Time of Note Date/Time of Note DATE: 04/22/17 TIME: 16:18 Assessment/Plan VTE Prophylaxis VTE Prophylaxis Intervention: SCD's Lines/Catheters [facility] Peripheral IV Urinary Cath still in place: No Assessment/Plan Chief Complaint/Hosp Course Patient's complains of not having a bowel movement for last couple of days, however states that the pain is mild to moderate. Assessment/Plan - Opioid induced constipation, continue Amitiza, continue to follow-up gastroenterology consultation. - Acute proctitis. Status post colonoscopy. Dr. Medina is is following in gastroenterology consultation - Status post UTI. - Paraplegia. - Cervical tumor resection. - Fecal impaction with overflow symptoms, continue bowel regimen per GI. - History of deep venous thrombosis several years ago. Further recommendations based on clinical course. Plan of care discussed with Dr. Treviño. Problems: Exam/Review of Systems Vital Signs Vitals Vital Signs Date Time Temp Pulse Resp B/P Pulse Ox O2 Delivery O2 Flow Rate FiO2 04/22/17 07:50 97.8 54 16 127/87 93 04/18/17 13:32 Room Air Intake and Output 04/21/17 04/21/17 04/22/17 14:59 22:59 06:59 Intake Total 360 ml 860 ml Output Total 800 ml Balance 360 ml 60 ml Exam Constitutional: alert, oriented Head: normocephalic Neck: supple Respiratory: normal air movement Cardiovascular: nl pulses Gastrointestinal: non-tender, other (Rectal pain), soft Extremities: normal pulses Neurological: other (Paraplegia) Results Result Diagram: 04/22/17 0505 04/22/17 0505 Results 24 hrs Laboratory Tests Test 04/22/17 05:05 White Blood Count 6.7 Red Blood Count 4.49 L Hemoglobin 11.9 L Hematocrit 36.4 L Mean Corpuscular Volume 81.1 L Mean Corpuscular Hemoglobin 26.5 L Mean Corpuscular Hemoglobin Concent 32.7 Red Cell Distribution Width 15.1 H Platelet Count 312 Mean Platelet Volume 10.9 H Neutrophils % 47.6 Lymphocytes % 37.1 Monocytes % 10.7 Eosinophils % 3.3 Basophils % 0.9 Nucleated Red Blood Cells % 0.0 Neutrophils # 3.2 Lymphocytes # 2.5 Monocytes # 0.7 Eosinophils # 0.2 Basophils # 0.1 Nucleated Red Blood Cells # 0.0 Sodium Level 139 Potassium Level 4.5 Chloride Level 105 Carbon Dioxide Level 30 Anion Gap 9 Blood Urea Nitrogen 12 Creatinine 0.70 Glucose Level 86 Calcium Level 8.4 Medications Medications Current Medications Sodium Chloride (NS) 1,000 ml @ 30 mls/hr Q24H IV Last administered on 11:53; Admin Dose 30 MLS/HR; Start 04/05/17 at 15:30 Acetaminophen (Tylenol Tab) 500 mg Q4H PRN PO PAIN LEVEL 1-3 OR FEVER; Start at 15:30 Acetaminophen/ Hydrocodone Bitart ([place] (5/325)) 1 tab Q4H PRN PO PAIN LEVEL 4 -6 Last administered on 04/21/17 21:16; Admin Dose 1 TAB; Start 04/05/17 at 15: 30 Morphine Sulfate (morphine) 4 mg Q4H PRN IV PAIN LEVEL 7-10 Last administered on 04/17/17 23:17; Admin Dose 4 MG; Start 04/05/17 at 19:30 Docusate Sodium (Colace) 100 mg BID PO Last administered on 04/22/17 08:40; Admin Dose 100 MG; Start 04/09/17 at 09:00 Lubiprostone (Amitiza) 24 mcg BID PO Last administered on 04/22/17 08:40; Admin Dose 24 MCG; Start 04/18/17 at 21:00 LIZETH LOCKHART Apr 22, 2017 16:20
[2017-04-22 20:30] VITALS: BP 137/71; RESP 16
[2017-04-23 07:40] VITALS: BP 138/77; RESP 18
[2017-04-23] MEDS: DOCUSATE SODIUM 100 MG CAP PO SCH ×2 (09:05→20:34)
[2017-04-23] MEDS: LUBIPROSTONE 24 MCG CAP PO SCH ×2 (09:05→20:34)
--- NOTE | 2017-04-23 11:40 | PN ---
Date/Time of Note Date/Time of Note DATE: 04/23/17 TIME: 11:39 Assessment/Plan Lines/Catheters IV Catheter Type (from Nrsg): Saline Lock Urinary Cath still in place: No Assessment/Plan Assessment/Plan - Opioid induced constipation, continue Amitiza, continue to follow-up gastroenterology consultation. - Acute proctitis. Status post colonoscopy. Dr. Medina is is following in gastroenterology consultation - Status post UTI. - Paraplegia. - Cervical tumor resection. - Fecal impaction with overflow symptoms, continue bowel regimen per GI. - History of deep venous thrombosis several years ago. Further recommendations based on clinical course. Plan of care discussed with Dr. Treviño. Subjective 24 Hr Interval Summary Respiratory: no complaints Cardiovascular: no complaints Gastrointestinal: other Genitourinary: no complaints Exam/Review of Systems Vital Signs Vitals Vital Signs Date Time Temp Pulse Resp B/P Pulse Ox O2 Delivery O2 Flow Rate FiO2 04/23/17 07:40 98.0 59 18 138/77 94 Intake and Output 04/22/17 04/22/17 04/23/17 15:00 23:00 07:00 Intake Total 1130 ml 960 ml Output Total 1000 ml 2000 ml Balance 130 ml -1040 ml Exam Constitutional: alert, well developed Respiratory: clear to auscultation, normal air movement Cardiovascular: nl pulses, regular rate and rhythm Gastrointestinal: non-tender, soft Musculoskeletal: nl extremities to inspection Neurological: nl mental status, nl speech Results Result Diagram: 04/22/17 0505 04/22/17 0505 Medications Medications Current Medications Sodium Chloride (NS) 1,000 ml @ 30 mls/hr Q24H IV Last administered on 11:53; Admin Dose 30 MLS/HR; Start 04/05/17 at 15:30 Acetaminophen (Tylenol Tab) 500 mg Q4H PRN PO PAIN LEVEL 1-3 OR FEVER; Start at 15:30 Acetaminophen/ Hydrocodone Bitart ([place] (5/325)) 1 tab Q4H PRN PO PAIN LEVEL 4 -6 Last administered on 04/21/17 21:16; Admin Dose 1 TAB; Start 04/05/17 at 15: 30 Morphine Sulfate (morphine) 4 mg Q4H PRN IV PAIN LEVEL 7-10 Last administered on 04/17/17 23:17; Admin Dose 4 MG; Start 04/05/17 at 19:30 Docusate Sodium (Colace) 100 mg BID PO Last administered on 04/23/17 09:05; Admin Dose 100 MG; Start 04/09/17 at 09:00 Lubiprostone (Amitiza) 24 mcg BID PO Last administered on 04/23/17 09:05; Admin Dose 24 MCG; Start 04/18/17 at 21:00 CARLOS RESTREPO Apr 23, 2017 11:40
[2017-04-23] MEDS ORDERED: LACTULOSE 30ML CUP PO PRN (12:00)
[2017-04-23] MEDS ORDERED: BISACODYL (EC) 5 MG TAB PO PRN (12:00)
[2017-04-23] MEDS: PSYLLIUM 28% PACKET PO SCH (13:57)
[2017-04-23] MEDS: SOD CHLORIDE 0.9% 1,000 ML IV SCH (13:58)
[2017-04-23 20:56] VITALS: BP 114/62; RESP 17
[2017-04-24 07:40] VITALS: BP 149/75; RESP 16
[2017-04-24] MEDS: PSYLLIUM 28% PACKET PO SCH (08:44)
[2017-04-24] MEDS: DOCUSATE SODIUM 100 MG CAP PO SCH ×2 (08:44→21:34)
[2017-04-24] MEDS: LUBIPROSTONE 24 MCG CAP PO SCH ×2 (08:44→21:34)
--- NOTE | 2017-04-24 10:19 | PN ---
Date/Time of Note Date/Time of Note DATE: 04/24/17 TIME: 10:10 Assessment/Plan VTE Prophylaxis VTE Prophylaxis Intervention: other Lines/Catheters IV Catheter Type (from Nrs): Saline Lock Urinary Cath still in place: No Assessment/Plan Assessment/Plan - Opioid induced constipation, continue Amitiza, continue to follow-up gastroenterology consultation. - Acute proctitis. Status post colonoscopy. Dr. Medina is is following in gastroenterology consultation - Status post UTI. - Paraplegia. - Cervical tumor resection. - Fecal impaction with overflow symptoms, continue bowel regimen per GI. - History of deep venous thrombosis several years ago. Further recommendations based on clinical course. Plan of care discussed with Dr. Treviño. Subjective 24 Hr Interval Summary Respiratory: no complaints Cardiovascular: no complaints Gastrointestinal: no complaints Genitourinary: no complaints Exam/Review of Systems Vital Signs Vitals Vital Signs Date Time Temp Pulse Resp B/P Pulse Ox O2 Delivery O2 Flow Rate FiO2 04/24/17 07:40 97.7 57 16 149/75 95 Intake and Output 04/23/17 04/23/17 04/24/17 15:00 23:00 07:00 Intake Total 850 ml Output Total 1200 ml Balance -350 ml Exam Constitutional: alert Respiratory: clear to auscultation, normal air movement Cardiovascular: nl pulses, regular rate and rhythm Gastrointestinal: non-tender, soft Results Result Diagram: 04/22/17 0505 04/22/17 0505 Medications Medications Current Medications Sodium Chloride (NS) 1,000 ml @ 30 mls/hr Q24H IV Last administered on 13:58; Admin Dose 30 MLS/HR; Start 04/05/17 at 15:30 Acetaminophen (Tylenol Tab) 500 mg Q4H PRN PO PAIN LEVEL 1-3 OR FEVER; Start at 15:30 Acetaminophen/ Hydrocodone Bitart ([place] (5/325)) 1 tab Q4H PRN PO PAIN LEVEL 4 -6 Last administered on 04/21/17 21:16; Admin Dose 1 TAB; Start 04/05/17 at 15: 30 Morphine Sulfate (morphine) 4 mg Q4H PRN IV PAIN LEVEL 7-10 Last administered on 04/17/17 23:17; Admin Dose 4 MG; Start 04/05/17 at 19:30 Docusate Sodium (Colace) 100 mg BID PO Last administered on 04/24/17 08:44; Admin Dose 100 MG; Start 04/09/17 at 09:00 Lubiprostone (Amitiza) 24 mcg BID PO Last administered on 04/24/17 08:44; Admin Dose 24 MCG; Start 04/18/17 at 21:00 Bisacodyl (Dulcolax) 5 mg DAILY PRN PO CONSTIPATION Last administered on 16:47; Admin Dose 5 MG; Start 04/23/17 at 12:00 Lactulose (Enulose) 20 gm DAILY PRN PO CONSTIPATION Last administered on 08:44; Admin Dose 20 GM; Start 04/23/17 at 12:00 Psyllium Hydrophilic Mucilloid (Metamucil) 1 pkt DAILY PO Last administered on 04/24/17 08:44; Admin Dose 1 PKT; Start 04/23/17 at 12:00 CARLOS RESTREPO Apr 24, 2017 10:19
[2017-04-24] MEDS: SOD CHLORIDE 0.9% 1,000 ML IV SCH (13:20)
[2017-04-24 20:30] VITALS: BP 156/82; RESP 16
[2017-04-25] MEDS: SOD CHLORIDE 0.9% 1,000 ML IV SCH ×2 (01:18→09:08)
[2017-04-25 05:50] LABS: ADD SCAN DIFF NO
[2017-04-25 05:55] LABS: BASOPHIL # 0.1 10^3/ul (0.0-0.1); BASOPHILS % 0.5 % (0.0-2.0); EOSINOPHILS % 0.4 % (0.0-7.0); HEMATOCRIT 39.5 % (42.0-52.0); HEMOGLOBIN 12.6 g/dl (14.0-18.0); LYMPHOCYTES # 2.1 10^3/ul (0.8-2.9); LYMPHOCYTES % 19.7 % (15.0-51.0); MEAN CORPUSCULAR HEMOGLOBIN 25.5 pg (29.0-33.0); MEAN CORPUSCULAR HGB CONC 31.9 g/dl (32.0-37.0); MEAN CORPUSCULAR VOLUME 79.8 fl (82.0-101.0); MEAN PLATELET VOLUME 10.8 fl (7.4-10.4); MONOCYTES % 9.4 % (0.0-11.0); NEUTROPHIL # 7.6 10^3/ul (1.6-7.5); NEUTROPHILS % 69.6 % (39.0-77.0); PLATELET COUNT 280 10^3/UL (140-415); RED BLOOD COUNT 4.95 10^6/ul (4.70-6.10); RED CELL DISTRIBUTION WIDTH 15.2 % (11.5-14.5); WHITE BLOOD COUNT 10.9 10^3/ul (4.8-10.8)
[2017-04-25 06:27] LABS: CALCIUM 9.4 mg/dl (8.4-10.2); CREATININE 0.56 mg/dl (0.61-1.24)
[2017-04-25 08:15] VITALS: BP 109/61; RESP 16
[2017-04-25] MEDS: DOCUSATE SODIUM 100 MG CAP PO SCH ×3 (09:00→20:48)
[2017-04-25] MEDS: LUBIPROSTONE 24 MCG CAP PO SCH ×3 (09:00→20:46)
[2017-04-25] MEDS: PSYLLIUM 28% PACKET PO SCH ×2 (09:00→09:05)
[2017-04-25] MEDS: HYDROCODONE/APAP (5/325) TAB PO PRN (14:15)
[2017-04-25] MEDS: morphine 4 MG/ML VIAL IV PRN (15:41)
[2017-04-25] MEDS ORDERED: HYDR-3498 PO (17:47)
[2017-04-25] MEDS ORDERED: METAM PO (17:47)
[2017-04-25] MEDS ORDERED: DOCU-216 PO (17:47)
[2017-04-25] MEDS ORDERED: LUBI24CA7 PO (17:47)
[2017-04-25 20:33] VITALS: BP 112/59; RESP 16
== END 2017-04-25 21:00 | disposition home health service (06) | DRG 394 ==
LOC: E/R 09:01 → PP2 12:17
PROVIDERS: ADMIT Internal Medicine; ATTEND Internal Medicine
PROC: 0DJD8ZZ Inspection of Lower Intestinal Tract, Via Natural or Artificial Opening Endoscopic (ICD-10-PCS; principal; 2017-04-18 12:30)
DX: K62.89 Other specified diseases of anus and rectum (principal); G82.20 Paraplegia, unspecified; D68.9 Coagulation defect, unspecified; N39.0 Urinary tract infection, site not specified; K59.03 Drug induced constipation; K31.9 Disease of stomach and duodenum, unspecified; B96.20 Unspecified Escherichia coli [E. coli] as the cause of diseases classified elsewhere; K59.09 Other constipation; Z79.01 Long term (current) use of anticoagulants; T40.2X5A Adverse effect of other opioids, initial encounter; Y92.009 Unspecified place in unspecified non-institutional (private) residence as the place of occurrence of the external cause; Z74.01 Bed confinement status
CPT/HCPCS: 74176; 80048; 80053; 81001; 83690; 85025; 85610; 85730; 87045; 87075; 87086; A4310; J0696; J2185; J2270; J2405; J7030; J7040